=== PATIENT | female | born 1950 | race Hispanic/Latino ===

== ENCOUNTER → 2018-01-23 11:51 | Outpatient (CLI) | payer SELFPAY ==
[2018-01-23 14:03] LABS: Alanine Aminotransferase 23 IU/L (9-52); Albumin 4.5 g/dL (3.5-5.0); Albumin Globulin Ratio 1.5 (1.0-2.8); Alkaline Phosphatase 105 U/L (38-126); Aspartate Aminotransferase 32 IU/L (14-36); BUN Creatinine Ratio 21.7 (6-22); Bilirubin Total 0.6 mg/dL (0.2-1.3); Blood Urea Nitrogen 13 mg/dL (7-17); Calcium 9.5 mg/dL (8.4-10.2); Carbon Dioxide 30 mmol/L (22-32); Chloride 103 mmol/L (98-107); Cholesterol 160 mg/dL (140-199); Estimated Glomerular Filt Rate > 60.0 mL/min (>60); Globulin 3.1 g/dL (1.7-4.1); Glucose 108 mg/dL (80-110); HDL Cholesterol 55 mg/dL (40-60); HEMOLYSIS < 15 (0-50); LDL Cholesterol Calculated 84 mg/dL (<100); Potassium 4.3 mmol/L (3.4-5.1); Sodium 144 mmol/L (137-145); Total Protein 7.6 g/dL (6.3-8.2); Triglycerides 103 mg/dL (35-150)
[2018-01-23 14:13] LABS: Free T4, Direct Thyroxine 1.34 ng/dL (0.78-2.19)
[2018-01-23 19:33] LABS: Thyroid Stimulating Hormone 2.55 uIU/mL (0.47-4.68)
== END ==
PROVIDERS: PCP Internal Medicine; Visit Provider Internal Medicine
DX: E03.9 Hypothyroidism, unspecified (principal); E78.2 Mixed hyperlipidemia
CPT/HCPCS: 36415; 80053; 80061; 84439; 84443

== ENCOUNTER 2018-11-01 08:01 | Day surgery (SDC) | payer MEDICARE, OTHER, SELFPAY ==
--- NOTE | 2018-10-30 19:19 | PM.PREOP ---
Pre-operative Note Interval Note History & Physical reviewed/Exam performed by Physician: Yes Changes to H&P: No
--- NOTE | 2018-10-30 19:19 | PM.OP.1 ---
Operative Date/Time/Diagnoses Date of procedure: 11/01/18 Time of procedure: 08:45 Procedure & Clinicians Procedure: Preoperative diagnoses: 1. Right nuclear sclerotic and cortical cataract. 2. Asthma. Postoperative diagnoses: 1. Right phacoemulsication with placement of a posterior chamber intraocular lens implant. Surgeon: Parisa Dickey MD Complications: none Specimen: None Implant: [id number] Blood loss: None Anesthesia: Retrobulbar with monitored standby. Description of procedure: Dictated by: Parisa Dickey MD Copy to: [facility] Post operative diagnoses: 1. Right cataract removed with placement of a posterior chamber intraocular lens. Procedure: Phacoemulsification with posterior chamber intraocular lens implant Surgeon: Parisa Dickey MD Blood loss: None Anesthesia: Retrobulbar with monitored standby Description of procedure: Patient has presented with decreased vision due to cataract which is affecting activities of daily living. The patient wants surgery to improve vision. The patient was taken to the operating room and given IV sedation. A retrobulbar block consisting of 6 cc of 2% xylocaine without epinephrine mixed half and half with 0.5% Marcaine with 1 cc of hyaluronidase added is placed between the medial and lateral 1/3 of the inferior orbital rim. Lid akinesia is obtain with 1% xylocaine with epinephrine infiltrated along the lid margin. The eye is manually massaged for 30 sec, prepped using Betadine solution, and draped in the usual sterile fashion. Temporal approach was made, a 1 mm side-port incision was performed 90 degrees from the planned corneal wound. Phenylephrine 1.5% mixed with 1% xylocaine 0.2 cc was placed into the anterior chamber. Viscoat followed by [place] was then placed. A 2.6 mm clear incision with a 2.6 mm blade was placed. A 360 degree capsulorrhexis style capsulotomy was then performed with a cystitome needle on a Healon. Hydrodelineation and hydrodissection were performed. The phacoemulsification unit is introduced, and sculpting used to groove the central lens. It is then removed in chopping mode. Epi nucleus is removed with epinuclear mode and irrigation aspiration was used to remove the peripheral cortex. The posterior capsule is polished. The intraocular lens is selected, inspected, power confirmed, and placed in the posterior chamber. The pupil was constricted with Miostat. The wound was stromally hydrated and tested for leaks, there was none and was left sutureless. Vigamox 0.1 cc was placed into the anterior chamber. Kenalog 0.2 cc was placed in the superior subconjunctival space. A drop of antibiotic and was placed and the eye was patched and shielded. The patient was stable and returned to the recovery room in excellent condition. Dictated by: Parisa Dickey MD Copy to: [facility]
[2018-11-01] MEDS: PROPARACAINE 0.5% OPHTH SOL 2 DROPS EYE-OP (08:19)
[2018-11-01 08:22] VITALS: BMI 33.5
[2018-11-01] MEDS: CATARACT EYE COMPOUND (10 DROPS/SYRINGE) 3 DROPS EYE-OP (08:26)
[2018-11-01 08:27] VITALS: BP 151/73; PULSE 62; RESP 16; TEMP 36.6; O2SAT 96
[2018-11-01] MEDS: LIDOCAINE 2% 4 ML, BUPIVACAINE 0.5% (PF) 4 ML, HYALURONIDASE 150 UNIT INJ (09:17)
[2018-11-01] MEDS: LIDOCAINE 1% W/EPI INJ 20 ML INJ (09:18)
[2018-11-01] MEDS: PHENYLEPHRINE/LIDOCAINE VIAL (OR) 0.2 ML EYE-OP (09:19)
[2018-11-01] MEDS: MOXIFLOXACIN OPHTH DROPS 3 ML BOTTLE 2 DROPS INJ (09:20)
[2018-11-01] MEDS: CHONDROIDTIN/SOD HYALURONATE 1.05 ML SYRINGE INTRAOCULA (09:21)
[2018-11-01] MEDS: BALANCED SALT IRRIG SOLN NO.2 500 ML, EPINEPHrine 1 MG IRR (09:21)
[2018-11-01] MEDS: CARBACHOL 1.5 ML VIAL INJ (09:21)
[2018-11-01] MEDS: HYALURONATE SODIUM 10 MG/ML SYRINGE INJ (09:21)
[2018-11-01] MEDS: TRIAMCINOLONE 50 MG/5 ML VIAL INJ (09:21)
[2018-11-01] MEDS: OFLOXACIN 0.3% OPHTH 5 ML 2 DROPS EYE-RIGHT (09:22)
[2018-11-01] MEDS: NEOMYCIN/POLY/DEX OPHTH OINT 1 APPLIC EYE-RIGHT (09:23)
[2018-11-01] MEDS: BALANCED SALT IRRIG SOLN NO.2 15 ML IRR (09:24)
[2018-11-01 09:42] VITALS: BP 144/72; PULSE 67; RESP 16; TEMP 36.3; O2SAT 97
--- NOTE | 2018-11-01 10:09 | SUR.PHASEII ---
Late entry: d/c instructions discussed, indoing so I was made aware pt never picked eye drops up from Pharmacy. Dr. Dickey made aware. Pt's daughter called, informed she needed to pick meds up at our pharmacy and she voiced an understanding. Pt also voiced an understanding and left when ready and left in stable condition.
== END 2018-11-01 10:00 | disposition home or self-care (01) ==
LOC: OR 08:02
PROVIDERS: Family Provider Internal Medicine; PCP Internal Medicine; Visit Provider Ophthalmology
PROC: (CPT 66984; principal; 2018-11-01 08:45)
DX: H25.811 Combined forms of age-related cataract, right eye (principal); J45.909 Unspecified asthma, uncomplicated
CPT/HCPCS: 66984; J0171; J2250; J3010; J3301; J3470

== ENCOUNTER 2018-11-15 08:27 | Day surgery (SDC) | payer MEDICARE, OTHER, SELFPAY ==
--- NOTE | 2018-11-14 18:32 | PM.PREOP ---
Pre-operative Note Interval Note History & Physical reviewed/Exam performed by Physician: Yes Changes to H&P: No
--- NOTE | 2018-11-15 08:19 | P.OP_ITS ---
Operative Date/Time/Diagnoses Date of procedure: 11/15/18 Time of procedure: 09:45 Procedure & Clinicians Procedure: Preoperative diagnoses: 1. Nuclear sclerotic cataract 2. Astigmatism which is to be corrected with a toric intraocular lens implant. Postoperative diagnoses: 1. Cataract removal with phacoemulsification with toric posterior chamber intraocular lens implant placed. Procedure: Phacoemulsification with posterior chamber toric intraocular lens i mplant. Surgeon: Parisa Dickey MD Complications: None Specimen: None Implant: [id number]+21.5Axis 118 Blood loss: None Anesthesia: Retrobulbar with monitored standby Description of procedure: Patient presents with a complaint of decreased vision due to cataract which is affecting activities of daily living. The patient wants surgery to improve vision and astigmatism. The patient was taken to the operating room and proparacaine drops placed. Indelible ink trejo were placed at the 90 and 180 degree meridian. The patient was placed on the operating room table and given IV sedation. A retrobulbar block insert consisting of 6 cc of 2% xylocaine without epinephrine mixed half and half with 0.5% Marcaine with 1 cc of hyaluronidase added is placed between the medial and lateral 1/3 of the inferior orbital rim. The eye is manually massaged for 30 sec, prepped using Betadine solution, and draped in the usual sterile fashion. Temporal approach was made, a 1 mm side-port incision was made 90? from the proposed corneal wound. Phenylephrine 1.5% mixed with 1% xylocaine 0.2 cc was placed into the anterior chamber. Viscoat followed by Healon was then placed. A 2.6 mm clear incision with a 2.6 mm blade was placed at the 170 degree meridian. A 360 degree capsulorrhexis style capsulotomy was then performed with a cystitome needle on a Healon. Hydrodelineation and hydrodissection were performed. The phacoemulsification unit is introduced, and sculpting used to groove the central lens. It is then removed in chopping mode. Epi nucleus is removed with epinuclear mode and irrigation aspiration was used to remove the peripheral cortex. The posterior capsule is polished. The intraocular lens is selected, inspected, power confirmed, and placed in the posterior chamber at the desired meridian of 118 degrees. The pupil was not constricted. The wound was stromally hydrated and tested for leaks, there was none and it was left sutureless. Vigamox 0.1 cc was placed into the anterior chamber. Kenalog 0.2 cc was placed in the superior subconjunctival space. A drop of antibiotic and was placed and the eye was patched and shielded. The patient was stable and returned to the recovery room in excellent condition. Dictated by: Parisa Dickey MD Copy to: [facility]
[2018-11-15 09:03] VITALS: BP 125/74; PULSE 56; RESP 16; TEMP 36.6; O2SAT 97; BMI 33.1
[2018-11-15] MEDS: PROPARACAINE 0.5% OPHTH SOL 2 DROPS EYE-OP ×2 (09:06→10:23)
[2018-11-15] MEDS: CATARACT EYE COMPOUND (10 DROPS/SYRINGE) 3 DROPS EYE-OP (09:11)
[2018-11-15] MEDS: BALANCED SALT IRRIG SOLN NO.2 15 ML IRR (10:20)
[2018-11-15] MEDS: HYALURONATE SODIUM 10 MG/ML SYRINGE INJ (10:20)
[2018-11-15] MEDS: MOXIFLOXACIN OPHTH DROPS 3 ML BOTTLE 2 DROPS INJ (10:20)
[2018-11-15] MEDS: CHONDROIDTIN/SOD HYALURONATE 1.05 ML SYRINGE INTRAOCULA (10:20)
[2018-11-15] MEDS: TRIAMCINOLONE 50 MG/5 ML VIAL INJ (10:21)
[2018-11-15] MEDS: LIDOCAINE 2% 4 ML, BUPIVACAINE 0.5% (PF) 4 ML, HYALURONIDASE 150 UNIT INJ (10:21)
[2018-11-15] MEDS: PHENYLEPHRINE/LIDOCAINE VIAL (OR) 0.2 ML EYE-OP (10:22)
[2018-11-15] MEDS: BALANCED SALT IRRIG SOLN NO.2 500 ML, EPINEPHrine 1 MG IRR (10:23)
[2018-11-15 10:47] VITALS: BP 135/79; PULSE 60; RESP 15; TEMP 36.4; O2SAT 97
--- NOTE | 2018-11-15 11:06 | SUR.PHASEII ---
Resp unlabored, skin warm and dry. Tolerated PO well, all questions answered. Ride called. Eye shield CDI. Stable for discharge.
== END 2018-11-15 11:06 | disposition home or self-care (01) ==
PROVIDERS: PCP Internal Medicine; Visit Provider Ophthalmology
PROC: (CPT 66984; principal; 2018-11-15 09:45)
DX: H25.12 Age-related nuclear cataract, left eye (principal); H52.202 Unspecified astigmatism, left eye; J45.909 Unspecified asthma, uncomplicated
CPT/HCPCS: 66984; J0171; J2250; J3010; J3301; J3470; V2787

== ENCOUNTER 2019-06-21 10:38 | Emergency (ER) | payer MEDICARE, OTHER, SELFPAY ==
[2019-06-21 10:42] VITALS: BP 200/86; PULSE 94; RESP 20; TEMP 38.8; O2SAT 93
--- NOTE | 2019-06-21 10:46 | DI.RAD.S_ITS ---
PROCEDURE: XR CHEST 2V INDICATIONS: flu like symptoms, productive cough. DROPLET PRECAUTIONS TECHNIQUE: 2 views of the chest were acquired. COMPARISON: [facility], , CHEST 1 VIEW, 09/29/2013, 1:27. FINDINGS: Surgical changes and devices: Bilateral breast implants are seen and are grossly intact. Lungs and pleura: Increased bronchovascular markings in bilateral hilar region are seen with mild bronchial wall thickening. No focal infiltrate.. No pleural effusions or pneumothorax. Mediastinum: Mediastinal contours are normal. Heart size is normal. Bones and chest wall: No suspicious bony abnormalities. Soft tissues appear unremarkable. IMPRESSION: Suggestion of reactive airway disease such as bronchitis or viral pneumonia. No focal infiltrate. Dictated by: Gen Cope M.D. on 06/21/2019 at 11:17 Approved by: Gen Cope M.D. on 06/21/2019 at 11:18
[2019-06-21 10:51] VITALS: TEMP 38.8
[2019-06-21] MEDS: ACETAMINOPHEN 325 MG TABLET 975 MG PO (10:51)
[2019-06-21 11:17] LABS: Influenza A - CEPHEID Flu A POSITIVE (NEGATIVE); Influenza B - CEPHEID Flu B NEGATIVE (NEGATIVE)
--- NOTE | 2019-06-21 11:46 | PC.NURSE ---
pt reports she feels like she has sputum in throat and can not cough it up. pt having symptoms for the past 2 days
[2019-06-21 11:49] VITALS: BP 172/79; PULSE 88; RESP 17; TEMP 38.7; O2SAT 96
[2019-06-21 11:53] VITALS: PULSE 86; RESP 18; O2SAT 94
[2019-06-21] MEDS: ALBUTEROL/IPRATROPIUM 3 ML AMPUL INH (11:53)
[2019-06-21 12:46] VITALS: BP 170/88; PULSE 80; RESP 18; TEMP 38; O2SAT 94
--- NOTE | 2019-06-21 13:21 | ED.URI ---
HPI - URI/Sore Throat <PETRA Stubbs - Last Filed: 06/21/19 13:26> General Chief Complaint: Upper Respiratory Symptoms Stated Complaint: Throat and Chest Congestion Time Seen by Provider: 06/21/19 11:37 Source: patient Mode of arrival: Ambulatory Limitations: no limitations History of Present Illness HPI Narrative: The patient is a 68-year-old female nonsmoker with history of COPD who presents with a chief complaint of throat and chest congestion. Drip. She has had fevers up to 101.8. She states she has been wheezing, using her QVAR and her albuterol at home. She denies any abdominal pain nausea vomiting or diarrhea. She denies any ear pain or sore throat. Related Data Home Medications Medication Instructions Recorded Confirmed furosemide 20 mg PO QAM PRN 11/01/18 11/15/18 albuterol sulfate [Ventolin HFA] 1 - 2 puff INHALATION PRN PRN 06/21/19 06/21/19 beclomethasone dipropionate [Qvar 1 - 2 inh INHALATION BID 06/21/19 06/21/19 RediHaler] levothyroxine 125 mcg PO DAILY 06/21/19 06/21/19 metformin 500 mg PO QPM 06/21/19 06/21/19 Previous Rx's Medication Instructions Recorded atorvastatin 40 mg tablet 40 mg PO DAILY #90 tab 01/24/18 ibuprofen 800 mg tablet 800 mg PO TID PRN #150 tab 05/01/18 oseltamivir [Tamiflu] 75 mg PO BID 5 Days #10 cap 06/21/19 prednisone 40 mg PO DAILY 5 Days #10 tab 06/21/19 Allergies Allergy/AdvReac Type Severity Reaction Status Date / Time aspirin [ASPIRIN] AdvReac Mild Stomach Verified 06/21/19 10:45 irritation codeine [CODEINE] AdvReac Mild GI upset Verified 06/21/19 10:45 Review of Systems <PETRA Stubbs - Last Filed: 06/21/19 13:26> Review of Systems Narrative: GENERAL: See HPI HEENT: See HPI RESPIRATORY: See HPI CARDIOVASCULAR: Denies chest pain, palpitations, orthopnea, edema, GASTROINTESTINAL: Denies nausea, vomiting, abdominal pain, diarrhea, constipation, melena. : Denies dysuria, frequency, incontinence, hematuria, urinary retention. MUSCULOSKELETAL: denies weakness, joint pain, or bony pain SKIN: Denies rash, skin lesions, or other NEUROLOGIC: Denies weakness, headache, numbness, change in speech, confusion, seizures, incoordination. PSYCHIATRIC: No concerning psychosocial issues. 12 point review of systems is negative except for those stated above Patient History <PETRA Stubbs - Last Filed: 06/21/19 13:26> Medical History Acquired hypothyroidism (Chronic) Hyperthyroidism (Resolved) Mixed hyperlipidemia (Chronic) Surgical History Status post cholecystectomy Status post hysterectomy (~1988) Family History Mother Brain tumor Social History household members: spouse Smoking Status: Never smoker Smoking Status: Never smoker Exam <PETRA Stubbs - Last Filed: 06/21/19 13:26> Narrative Exam Narrative: GENERAL: This is a well-nourished, well-developed patient, no acute distress HEAD: Atraumatic. Normocephalic. No temporal or scalp tenderness. EYES: Pupils equal round and reactive. Extraocular motions intact. No scleral icterus. No injection or drainage. ENT: Nose without bleeding, purulent drainage or septal hematoma. Throat without erythema, tonsillar hypertrophy or exudate. Uvula midline. Airway patent. Bilateral TMs pearly alvarez. NECK: Trachea midline. No JVD or lymphadenopathy. Supple, nontender, no meningeal signs. CARDIOVASCULAR: Regular rate and rhythm without murmurs, gallops, or rubs. RESPIRATORY: Coarse bilaterally to auscultation. Breath sounds equal bilaterally. No wheezes, rales, or rhonchi. Speaking full sentences. No coughing. No increased respiratory effort. GASTROINTESTINAL: Abdomen soft, non-tender, nondistended. No hepato-splenomegaly, or palpable masses. No guarding. EXTREMITIES: No clubbing, cyanosis, or edema. No joint tenderness, effusion, or edema noted. BACK: Nontender without deformity or crepitance. No flank tenderness. NEURO: AOx3. SKIN: No rash or erythema on visible skin Initial Vital Signs Initial Vital Signs: Vital Signs Temperature 101.8 F H 06/21/19 10:42 Pulse Rate 94 H 06/21/19 10:42 Respiratory Rate 20 06/21/19 10:42 Blood Pressure 200/86 H 06/21/19 10:42 Pulse Oximetry 93 06/21/19 10:42 <Bryan Dozier MD - Last Filed: 06/22/19 07:53> Initial Vital Signs Initial Vital Signs: Vital Signs Temperature 101.8 F H 06/21/19 10:42 Pulse Rate 94 H 06/21/19 10:42 Respiratory Rate 20 06/21/19 10:42 Blood Pressure 200/86 H 06/21/19 10:42 Pulse Oximetry 93 06/21/19 10:42 Scores <PETRA Stubbs - Last Filed: 06/21/19 13:26> GCS [place] coma scale eye opening: Spontaneous Ravi coma scale verbal response: Orientated [place] coma scale motor response: Obey commands [place] coma scale total score: 15 Course <PETRA Stubbs - Last Filed: 06/21/19 13:26> Orders Ordered: Discontinued Medications Acetaminophen (Tylenol) 975 mg PO NOW ONE Stop: 06/21/19 10:48 Last Admin: 06/21/19 10:51 Dose: 975 mg Documented by: LEROY Albuterol/Ipratropium (Duoneb) 3 ml INH NOW ONE Stop: 06/21/19 11:46 Last Admin: 06/21/19 11:53 Dose: 3 ml Documented by: JASE Vital Signs Vital signs: Vital Signs - 8 hr 06/21/19 10:42 06/21/19 10:51 06/21/19 11:49 Temperature 101.8 F H 101.8 F H 101.6 F H Pulse Rate 94 H 88 Respiratory Rate 20 17 Blood Pressure 200/86 H Blood Pressure [Right Arm] 172/79 H Pulse Oximetry 93 96 06/21/19 11:53 06/21/19 12:46 Temperature 100.4 F H Pulse Rate 86 80 Respiratory Rate 18 18 Blood Pressure 170/88 H Blood Pressure [Right Arm] Pulse Oximetry 94 94 <Bryan Dozier MD - Last Filed: 06/22/19 07:53> Orders Ordered: Discontinued Medications Acetaminophen (Tylenol) 975 mg PO NOW ONE Stop: 06/21/19 10:48 Last Admin: 06/21/19 10:51 Dose: 975 mg Documented by: LEROY Albuterol/Ipratropium (Duoneb) 3 ml INH NOW ONE Stop: 06/21/19 11:46 Last Admin: 06/21/19 11:53 Dose: 3 ml Documented by: JASE Vital Signs Vital signs: Vital Signs - 8 hr 06/21/19 10:42 06/21/19 10:51 06/21/19 11:49 Temperature 101.8 F H 101.8 F H 101.6 F H Pulse Rate 94 H 88 Respiratory Rate 20 17 Blood Pressure 200/86 H Blood Pressure [Right Arm] 172/79 H Pulse Oximetry 93 96 06/21/19 11:53 06/21/19 12:46 Temperature 100.4 F H Pulse Rate 86 80 Respiratory Rate 18 18 Blood Pressure 170/88 H Blood Pressure [Right Arm] Pulse Oximetry 94 94 MDM - URI/Sore Throat <SANTIAGO Stubbs-OLINDA - Last Filed: 06/21/19 13:26> Lab Data Labs: Lab Results 06/21/19 06/21/19 Range/Units 10:48 10:48 Chlamy pneumoniae PCR Not detected (Not Detect) Adenovirus (PCR) Not detected (Not Detect) B.parapertussis DNA PCR Not detected (Not Detect) Coronavirus OC43 (PCR) Not detected (Not Detect) Coronavirus HKU1 (PCR) Not detected (Not Detect) Coronavirus 229E (PCR) Not detected (Not Detect) Coronavirus NL63 (PCR) Not detected (Not Detect) Human Metapneumovir PCR Not detected (Not Detect) Influenza A (RT-PCR) Flu a positive H (NEGATIVE) Influenza Type A (PCR) Detected H (Not Detect) Influenza B (RT-PCR) Flu b negative (NEGATIVE) Influenza Type B (PCR) Not detected (Not Detect) M. pneumoniae (PCR) Not detected (Not Detect) Parainfluenza 1 (PCR) Not detected (Not Detect) Parainfluenza 2 (PCR) Not detected (Not Detect) Parainfluenza 3 (PCR) Not detected (Not Detect) Parainfluenza 4 (PCR) Not detected (Not Detect) RSV (PCR) Not detected (Not Detect) Entero/Rhino (PCR) Not detected (Not Detect) Imaging Data Chest x-ray: Radiologist's Impression: [address] [place] [id number] XRay Report Signed Patient: Laly Valenzuela IMR#: [id number] : 2Acct:[id number] Age/Sex: 68 / FDate of Service: 06/21/19 Loc: ED Accession Number: [id number] Procedure: XR chest 2V Ordering Provider: Bryan Dozier MD PROCEDURE: XR CHEST 2V INDICATIONS: flu like symptoms, productive cough. DROPLET PRECAUTIONS TECHNIQUE: 2 views of the chest were acquired. COMPARISON: [facility], CHEST 1 VIEW, 09/29/2013, 1:27. FINDINGS: Surgical changes and devices: Bilateral breast implants are seen and are grossly intact. Lungs and pleura: Increased bronchovascular markings in bilateral hilar region are seen with mild bronchial wall thickening. No focal infiltrate.. No pleural effusions or pneumothorax. Mediastinum: Mediastinal contours are normal. Heart size is normal. Bones and chest wall: No suspicious bony abnormalities. Soft tissues appear unremarkable. IMPRESSION: Suggestion of reactive airway disease such as bronchitis or viral pneumonia. No focal infiltrate. Dictated by: Gen Cope M.D. on 06/21/2019 at 11:17 Approved by: Gen Cope M.D. on 06/21/2019 at 11:18 MDM Narrative Medical decision making narrative: The patient is a 68-year-old female with history of COPD who presents with increased wheezing, muscle aches and chills. She test positive for influenza A. She was given Tylenol in the emergency department states she felt much better. She was given a DuoNeb as well. She is using a spacer at home. She is oxygenating well in the emergency department, speaking full sentences and not hypoxic. Given her wheezing, I did give her a burst of steroids. Given that she has had symptoms for less than 48 hours, I did give her prescription for Tamiflu. I discussed at length pushing fluids and rest, [id number] medications as needed and able. I discussed at length the importance of following up with primary care provider coming back to the emergency department for any acute concerns. Patient has no questions or concerns upon discharge and states understanding of return precautions as well as follow-up care. <Bryan Dozier MD - Last Filed: 06/22/19 07:53> Lab Data Labs: Lab Results 06/21/19 06/21/19 Range/Units 10:48 10:48 Chlamy pneumoniae PCR Not detected (Not Detect) Adenovirus (PCR) Not detected (Not Detect) B.parapertussis DNA PCR Not detected (Not Detect) Coronavirus OC43 (PCR) Not detected (Not Detect) Coronavirus HKU1 (PCR) Not detected (Not Detect) Coronavirus 229E (PCR) Not detected (Not Detect) Coronavirus NL63 (PCR) Not detected (Not Detect) Human Metapneumovir PCR Not detected (Not Detect) Influenza A (RT-PCR) Flu a positive H (NEGATIVE) Influenza Type A (PCR) Detected H (Not Detect) Influenza B (RT-PCR) Flu b negative (NEGATIVE) Influenza Type B (PCR) Not detected (Not Detect) M. pneumoniae (PCR) Not detected (Not Detect) Parainfluenza 1 (PCR) Not detected (Not Detect) Parainfluenza 2 (PCR) Not detected (Not Detect) Parainfluenza 3 (PCR) Not detected (Not Detect) Parainfluenza 4 (PCR) Not detected (Not Detect) RSV (PCR) Not detected (Not Detect) Entero/Rhino (PCR) Not detected (Not Detect) Discharge Plan Departure Patient Disposition: Home Clinical Impression: Influenza A COPD (chronic obstructive pulmonary disease) Qualifiers: COPD type: unspecified COPD Qualified Code(s): J44.9 - Chronic obstructive pulmonary disease, unspecified Discharge Date/Time: 06/21/19 12:47 Instructions: DI for Chronic Obstructive Pulmonary Disease, DI for Influenza -- Adult, COPD: When to Call for Help Activity Restrictions/Additional Instructions: Thank you for trusting us with your care today. Today you tested positive for influenza A. Your chest x-ray shows no indication for bacterial pneumonia. Given your COPD and wheezing, placed you in a steroid burst for 5 days. Since you came in shortly after influenza symptoms started, I placed you on Tamiflu. [facility] 2 [facility] Please rest and push fluids Please come back to the emergency department for any acute concerns such as significant shortness of breath, concern of heart attack stroke etcetera Prescriptions: New oseltamivir [Tamiflu] 75 mg capsule 75 mg PO BID 5 Days Qty: 10 RF: 0 prednisone 20 mg tablet 40 mg PO DAILY 5 Days Qty: 10 RF: 0 No Action ibuprofen 800 mg tablet 800 mg PO TID PRN (Reason: pain) Qty: 150 RF: 3 atorvastatin 40 mg tablet 40 mg PO DAILY Qty: 90 RF: 3 metformin 500 mg tablet 500 mg PO QPM RF: 0 levothyroxine 125 mcg tablet 125 mcg PO DAILY RF: 0 albuterol sulfate [Ventolin HFA] 90 mcg/actuation HFA aerosol inhaler 1 - 2 puff INHALATION PRN PRN (Reason: Shortness Of Breath) RF: 0 Qvar RediHaler 80 mcg/actuation HFA aerosol breath activated 1 - 2 inh INHALATION BID RF: 0 furosemide 20 MG tablet 20 mg PO QAM PRN (Reason: bloating) RF: 0 Referrals: Bryan Bridges MD [Primary Care Provider] -
[2019-06-21 14:39] LABS: Adenovirus Not Detected (Not Detect); Bordetella pertussis Not Detected (Not Detect); Chlamydophila pneumoniae Not Detected (Not Detect); Coronavirus 229E Not Detected (Not Detect); Coronavirus HKU1 Not Detected (Not Detect); Coronavirus NL 63 Not Detected (Not Detect); Coronavirus OC43 Not Detected (Not Detect); Human Metapneumovirus Not Detected (Not Detect); Human Rhinovirus/Enterovirus Not Detected (Not Detect); Influenza A Detected (Not Detect); Influenza B Not Detected (Not Detect); Mycoplasma pneumoniae Not Detected (Not Detect); Parainfluenza Virus 1 Not Detected (Not Detect); Parainfluenza Virus 2 Not Detected (Not Detect); Parainfluenza Virus 3 Not Detected (Not Detect); Parainfluenza Virus 4 Not Detected (Not Detect); Respiratory Syncytial Virus Not Detected (Not Detect)
== END 2019-06-21 12:47 | disposition home or self-care (01) ==
PROVIDERS: Emergency Medicine; Emergency Provider Nurse Practitioner Family; PCP Internal Medicine
DX: J10.1 Influenza due to other identified influenza virus with other respiratory manifestations (principal); J44.9 Chronic obstructive pulmonary disease, unspecified
CPT/HCPCS: 71046; 87502; 87633; 94640; 99283; 99284

== ENCOUNTER 2021-05-30 01:39 | Emergency (ER) | payer MEDICARE, OTHER, SELFPAY ==
[2021-05-30 01:51] VITALS: BP 209/100; PULSE 68; RESP 20; TEMP 37.1; O2SAT 99; BMI 33.6
--- NOTE | 2021-05-30 02:00 | DI.RAD.S_ITS ---
PROCEDURE: XR CHEST 1V INDICATIONS: short of breath with covid TECHNIQUE: One view of the chest was acquired. COMPARISON: [facility], CR, XR CHEST 2V, 06/21/2019, 1:04. FINDINGS: Surgical changes and devices: Calcified bilateral breast implants are again noted. Lungs and pleura: Minimal interstitial prominence not significantly changed compared to prior study. No focal consolidation. No pneumothorax or pleural effusion. Mediastinum: Mediastinal contours appear normal. Heart size is normal. Bones and chest wall: No suspicious bony lesions. Overlying soft tissues appear unremarkable. IMPRESSION: Redemonstration of minimal interstitial prominence without focal consolidations. Findings are nonspecific and may represent chronic background interstitial lung disease versus infectious/inflammatory process with viral etiology most likely. Dictated by: Denny Quevedo M.D. on 05/30/2021 at 7:55 Approved by: Denny Quevedo M.D. on 05/30/2021 at 7:57
[2021-05-30 02:06] VITALS: PULSE 60; O2SAT 100
[2021-05-30 02:26] LABS: Add Manual Diff / Slide Review NO; Basophils Absolute Auto 0 /uL (0-100); Basophils Percent Auto 0.5 % (0-2); Eosinophils Absolute Auto 0 /uL (0-450); Eosinophils Percent Auto 0.5 % (2-4); Hematocrit 35.5 % (36-46); Hemoglobin 11.8 g/dL (12.0-16.0); Lymphocytes Absolute Auto 2100 /uL (1100-4500); Lymphocytes Percent Auto 38.3 % (25-40); Mean Corpuscular HGB Conc 33.4 % (30-36); Mean Corpuscular Hemoglobin 29.5 PG (26-34); Mean Corpuscular Volume 88.3 fL (80-100); Monocytes Absolute Auto 900 /uL (0-900); Neutrophils Absolute Auto 2500 /uL (1500-7000); Neutrophils Percent Auto 44.7 % (50-75); Platelet Count 190 X10^3/uL (150-400); Red Blood Cell Count 4.02 X10^6/uL (4.0-5.2); Red Cell Distribution Width 15.2 % (11.6-14.8); White Blood Cell Count 5.6 X10^3/uL (4.5-11.0)
[2021-05-30 02:30] VITALS: PULSE 58; O2SAT 98
[2021-05-30 02:31] VITALS: BP 172/76; PULSE 58; O2SAT 95
[2021-05-30 02:34] LABS: COVID19 -Nasal RAPID POSITIVE (Negative)
[2021-05-30 02:36] LABS: Alanine Aminotransferase 13 IU/L (<35); Albumin 4.3 g/dL (3.5-5.0); Albumin Globulin Ratio 1.3 (1.0-2.8); Alkaline Phosphatase 80 U/L (38-126); Aspartate Aminotransferase 47 IU/L (14-36); BUN Creatinine Ratio 23.1 (6-22); Bilirubin Total 0.4 mg/dL (0.2-1.3); Blood Urea Nitrogen 15 mg/dL (7-17); Calcium 9.3 mg/dL (8.4-10.2); Carbon Dioxide 32 mmol/L (22-32); Chloride 103 mmol/L (98-107); Creatine Kinase 252 U/L (30-135); Estimated Glomerular Filt Rate > 60.0 mL/min (>60); Globulin 3.3 g/dL (1.7-4.1); Glucose 120 mg/dL (80-110); HEMOLYSIS < 15 (0-50); Lactate (Lactic Acid) 0.7 mmol/L (0.7-2.1); Potassium 3.9 mmol/L (3.4-5.1); Sodium 139 mmol/L (137-145); Total Protein 7.6 g/dL (6.3-8.2)
[2021-05-30 02:48] LABS: NT-proBNP (BNP-Adult 18+) 97 pg/mL (<125); Troponin I < 0.012 ng/mL (0.01-0.034)
[2021-05-30 02:51] LABS: CKMB % Relative Index 0.6 % (1.5-5.0); Creatine Kinase MB 1.43 ng/mL (<2.37)
[2021-05-30 03:00] VITALS: PULSE 57; O2SAT 97
[2021-05-30 03:01] VITALS: BP 179/76; PULSE 56; O2SAT 98
--- NOTE | 2021-05-30 03:04 | ED_ITS ---
HPI - SOB/Dyspnea General Chief Complaint: Upper Respiratory Symptoms Stated Complaint: SOB COVID + Time Seen by Provider: 05/30/21 01:52 Source: patient Mode of arrival: Ambulatory Limitations: no limitations History of Present Illness HPI Narrative: Patient is a 70-year-old female with chemical induced COPD, hyperlipidemia presenting today with sore throat and increasing shortness of breath over last 2 days. She has also had a nonproductive cough. Seen says this feels just like her previous influenza infection in June of 2019 for which she received Tamiflu. He said tonight she was having increasing shortness of breath and chest tightness while lying down. She has had some shortness of breath with exe rtion over the last couple days as well. She has some mild body aches. She did have a positive home COVID test. She is also not vaccinated for COVID Related Data Home Medications Medication Instructions Recorded Confirmed furosemide 20 mg tablet 20 mg PO QAM PRN 11/01/18 11/15/18 albuterol sulfate 90 mcg/actuation 1 - 2 puff INHALATION PRN PRN 06/21/19 06/21/19 aerosol inhaler (Ventolin HFA) beclomethasone dipropionate 80 1 - 2 inh INHALATION BID 06/21/19 06/21/19 mcg/actuation HFA breath activated aerosol (Qvar RediHaler) levothyroxine 125 mcg tablet 125 mcg PO DAILY 06/21/19 06/21/19 metformin 500 mg tablet 500 mg PO QPM 06/21/19 06/21/19 Previous Rx's Medication Instructions Recorded atorvastatin 40 mg tablet 40 mg PO DAILY #90 tab 01/24/18 ibuprofen 800 mg tablet 800 mg PO TID PRN #150 tab 05/01/18 Allergies Allergy/AdvReac Type Severity Reaction Status Date / Time aspirin [ASPIRIN] AdvReac Mild Stomach Verified 06/21/19 10:45 irritation codeine [CODEINE] AdvReac Mild GI upset Verified 06/21/19 10:45 Review of Systems Review of Systems Narrative: GENERAL: Denies chills, fatigue, malaise, fever, sweats, travel HEENT: Denies sinus pain, ear pain, sore throat, difficulty swallowing, neck pain RESPIRATORY: See HPI CARDIOVASCULAR: Denies chest pain, palpitations, orthopnea, edema GASTROINTESTINAL: Denies nausea, vomiting, abdominal pain, diarrhea, constipation, melena. : Denies dysuria, frequency, incontinence, hematuria, urinary retention, flank pain. MUSCULOSKELETAL: Denies weakness, joint pain, or bony pain SKIN: No rash, no erythema, no pruritus NEUROLOGIC: Denies weakness, dizziness, headache, numbness, change in speech, confusion PSYCHIATRIC: No concerning psychosocial issues. 12 point review of systems is negative except for those stated above and HPI Patient History Medical History (Updated 05/30/21 @ 03:14 by Maria Howe DO) Acquired hypothyroidism Hyperthyroidism Mixed hyperlipidemia Surgical History Status post cholecystectomy Status post hysterectomy (~1988) Family History Mother Brain tumor Social History household members: spouse Smoking Status: Never smoker Smoking Status: Never smoker alcohol intake frequency: 0-2 drinks per day Substance Use Type: does not use Exam Initial Vital Signs Initial Vital Signs: Vital Signs Temperature 98.8 F 05/30/21 01:51 Pulse Rate 68 05/30/21 01:51 Respiratory Rate 20 05/30/21 01:51 Blood Pressure 209/100 H 05/30/21 01:51 Pulse Oximetry 99 05/30/21 01:51 GENERAL: Alert well-appearing 70-year-old femaleand in no acute distress. HEENT: Head atraumatic,EOMI, pupils reactive, face symmetric, moist mucous membranes CARDIOVASCULAR: Regular rate and rhythm without murmurs, rubs or gallops. RESPIRATORY: Breath sounds equal bilaterally, no wheezes rales or rhonchi.no respiratory distress speaking in full sentences no wheezing ABDOMEN: Soft, nontender. Normoactive bowel sounds all 4 quadrants. No guarding or rebound. EXTREMITIES: Normal range of motion, no clubbing or edema. Neurovascularly intact NEUROLOGICAL: Alert and oriented x4.Normal gait and speech. SKIN: Warm, dry, no laceration, no petechiae, no rashes or lesions. Course Orders Ordered: ED Orders 05/30/21 02:00 XR chest 1V Stat 05/30/21 02:10 COVID19 -Nasal swab/Pre-Proc Stat Complete Blood Count AUTO DIFF Stat Comprehensive Metabolic Panel Stat Lactate (Lactic Acid) Stat NT-proBNP (BNP-Adult 18+) Stat Troponin & CK Cardiac Panel Stat 05/30/21 02:12 EKG-12 Lead Stat Vital Signs Vital signs: Vital Signs - 8 hr 05/30/21 01:51 05/30/21 02:06 05/30/21 02:30 Temperature 98.8 F Pulse Rate 68 60 58 L Respiratory Rate 20 Blood Pressure 209/100 H Pulse Oximetry 99 100 98 05/30/21 02:31 05/30/21 03:00 05/30/21 03:01 Temperature Pulse Rate 58 L 57 L 56 L Respiratory Rate Blood Pressure 172/76 H 179/76 H Pulse Oximetry 95 97 98 MDM - SOB/Dyspnea Lab Data Result diagrams: 05/30/21 02:10 05/30/21 02:10 Labs: Lab Results 05/30/21 05/30/21 05/30/21 Range/Units 02:10 02:10 02:10 WBC 5.6 (4.5-11.0) X10^3/uL RBC 4.02 (4.0-5.2) X10^6/uL Hgb 11.8 L (12.0-16.0) g/dL Hct 35.5 L (36-46) % MCV 88.3 (80-100) fL MCH 29.5 (26-34) PG MCHC 33.4 (30-36) % RDW 15.2 H (11.6-14.8) % Plt Count 190 (150-400) X10^3/uL Neut % (Auto) 44.7 L (50-75) % Lymph % (Auto) 38.3 (25-40) % Greenlee % (Auto) 16.0 H (3-14) % Eos % (Auto) 0.5 L (2-4) % Baso % (Auto) 0.5 (0-2) % Neut # (Auto) 2500 (3176-1867) /uL Lymph # (Auto) 2100 (2504-7414) /uL Greenlee # (Auto) 900 (0-900) /uL Eos # (Auto) 0 (0-450) /uL Baso # (Auto) 0 (0-100) /uL Sodium (137-145) mmol/L Potassium (3.4-5.1) mmol/L Chloride (98-107) mmol/L Carbon Dioxide (22-32) mmol/L BUN (7-17) mg/dL Creatinine (0.52-1.04) mg/dL Estimated GFR (>60) mL/min BUN/Creatinine Ratio (6-22) Glucose (80-110) mg/dL Lactate 0.7 (0.7-2.1) mmol/L Calcium (8.4-10.2) mg/dL Total Bilirubin (0.2-1.3) mg/dL AST (14-36) IU/L ALT (<35) IU/L Alkaline Phosphatase (38-126) U/L Total Creatine Kinase 252 H (30-135) U/L CK-MB (CK-2) 1.43 (<2.37) ng/mL CK-MB (CK-2) Rel Index 0.6 L (1.5-5.0) % Troponin I < 0.012 (0.01-0.034) ng/mL NT-Pro-B Natriuret Pep 97 (<125) pg/mL Total Protein (6.3-8.2) g/dL Albumin (3.5-5.0) g/dL Globulin (1.7-4.1) g/dL Albumin/Globulin Ratio (1.0-2.8) SARS-CoV-2 (PCR) (Negative) 05/30/21 05/30/21 Range/Units 02:10 02:10 WBC (4.5-11.0) X10^3/uL RBC (4.0-5.2) X10^6/uL Hgb (12.0-16.0) g/dL Hct (36-46) % MCV (80-100) fL MCH (26-34) PG MCHC (30-36) % RDW (11.6-14.8) % Plt Count (150-400) X10^3/uL Neut % (Auto) (50-75) % Lymph % (Auto) (25-40) % Greenlee % (Auto) (3-14) % Eos % (Auto) (2-4) % Baso % (Auto) (0-2) % Neut # (Auto) (6279-6391) /uL Lymph # (Auto) (8854-0951) /uL Greenlee # (Auto) (0-900) /uL Eos # (Auto) (0-450) /uL Baso # (Auto) (0-100) /uL Sodium 139 (137-145) mmol/L Potassium 3.9 (3.4-5.1) mmol/L Chloride 103 (98-107) mmol/L Carbon Dioxide 32 (22-32) mmol/L BUN 15 (7-17) mg/dL Creatinine 0.65 (0.52-1.04) mg/dL Estimated GFR > 60.0 (>60) mL/min BUN/Creatinine Ratio 23.1 H (6-22) Glucose 120 H (80-110) mg/dL Lactate (0.7-2.1) mmol/L Calcium 9.3 (8.4-10.2) mg/dL Total Bilirubin 0.4 (0.2-1.3) mg/dL AST 47 H (14-36) IU/L ALT 13 (<35) IU/L Alkaline Phosphatase 80 (38-126) U/L Total Creatine Kinase (30-135) U/L CK-MB (CK-2) (<2.37) ng/mL CK-MB (CK-2) Rel Index (1.5-5.0) % Troponin I (0.01-0.034) ng/mL NT-Pro-B Natriuret Pep (<125) pg/mL Total Protein 7.6 (6.3-8.2) g/dL Albumin 4.3 (3.5-5.0) g/dL Globulin 3.3 (1.7-4.1) g/dL Albumin/Globulin Ratio 1.3 (1.0-2.8) SARS-CoV-2 (PCR) Positive H (Negative) Imaging Data Chest x-ray: Radiologist's Impression: No acute cardiopulmonary pathology ECG Data Interpretation: Normal sinus rhythm rate 61 OH interval 168 QRS 82 QTC 394 MDM Narrative Medical decision making narrative: Patient initially noted to be hypertensive blood pressure improved without any intervention no sign of end-organ damage. She continues to be positive for COVID but not needing admission criteria at this time. Referral for monoclonal antibody has been filled out and faxed. On sure if this is still being done or given however we do not have any other medication from this facility at this time. Discharge Plan Departure Patient Disposition: Home Clinical Impression: COVID-19 Instructions: DI for COVID-19 (Suspected or Confirmed ) Activity Restrictions/Additional Instructions: *You have been diagnosed with COVID-19 *What to do: At this time you have COVID 19. Monoclonal antibody referral was made for you however it is not guaranteed he will receive it. Please monitor your oxygen at home. *Continue to take medications as directed *Follow up with your primary care provider in 2-3 days or call [phone] *Return to ER if you should have oxygen less than 91%, increasing shortness of breath, chest pain or any new, worsening or concerning symptoms Prescriptions: No Action ibuprofen 800 mg tablet 800 mg PO TID PRN (Reason: pain) Qty: 150 3RF atorvastatin 40 mg tablet 40 mg PO DAILY Qty: 90 3RF metformin 500 mg tablet 500 mg PO QPM 0RF Label Comments: TAKE 1 (ONE) TABLET DAILY WITH DINNER Rx Instructions: with dinner levothyroxine 125 mcg tablet 125 mcg PO DAILY 0RF Label Comments: TAKE 1 TABLET DAILY, TAKE ON EMPTY STOMACH albuterol sulfate [Ventolin HFA] 90 mcg/actuation HFA aerosol inhaler 1 - 2 puff INHALATION PRN PRN (Reason: Shortness Of Breath) 0RF Label Comments: INHALE 1-2 PUFF EVERY 6 HOURS NEEDED FOR ASTHMA Qvar RediHaler 80 mcg/actuation HFA aerosol breath activated 1 - 2 inh INHALATION BID 0RF Label Comments: INHALE 1-2 PUFFS BY MOUTH TWO TIMES DAILY furosemide 20 MG tablet 20 mg PO QAM PRN (Reason: bloating) 0RF Referrals: Bryan Bridges MD [Primary Care Provider] -
== END 2021-05-30 03:28 | disposition home or self-care (01) ==
PROVIDERS: Emergency Provider Emergency Medicine; PCP Internal Medicine
DX: U07.1 COVID-19 (principal); R07.9 Chest pain, unspecified
CPT/HCPCS: 36415; 71045; 80053; 82550; 82553; 83605; 83880; 84484; 85025; 87635; 93005; 93010; 99284; C9803

== ENCOUNTER 2024-04-04 22:06 | Emergency (ER) | payer MEDICARE, OTHER, SELFPAY ==
[2024-04-04] VITALS (11 sets, daily range): BP systolic 147–246; BP diastolic 66–109; PULSE 58–94; RESP 16–18; TEMP 37.1; O2SAT 97–99; BMI 32.7
--- NOTE | 2024-04-04 22:22 | DI.RAD.S_ITS ---
PROCEDURE: XR CHEST 1V INDICATIONS: severe htn TECHNIQUE: One view of the chest was acquired. COMPARISON: [facility], CR, XR CHEST 1V, 05/30/2021, 2:17. FINDINGS: Surgical changes and devices: None. Lungs and pleura: Lungs are clear. No pleural effusions or pneumothorax. Mediastinum: Mediastinal contours appear normal. Heart size is enlarged. Bones and chest wall: No suspicious bony lesions. Overlying soft tissues appear unremarkable. IMPRESSION: No acute pulmonary process. Dictated by: Natacha Riley M.D. on 04/04/2024 at 22:53 Approved by: Natacha Riley M.D. on 04/04/2024 at 22:53
--- NOTE | 2024-04-04 22:23 | ED.GENADULT ---
HPI - General Adult General Chief complaint: Hypertension Stated complaint: states high BP Time Seen by Provider: 04/04/24 22:14 Source: patient Mode of arrival: Ambulatory History of Present Illness HPI narrative: 73-year-old female with history of hyperlipidemia, prediabetes presents by private vehicle from home for elevated blood pressure readings. Patient states that she went to go lay down and felt like she could feel her heartbeat in her ears. She measured her blood pressure at home and it was over 200 systolic and so she decided to present for evaluation. Patient states that otherwise she was felt in her usual state of health and has no complaints. Denies chest pain, shortness of breath, worst headache of life, numbness, weakness, any other complaints. Does not take any medications for blood pressure at home. Followed by primary care doctor at [facility] Related Data Home Medications Medication Instructions Recorded Confirmed furosemide 20 mg tablet 20 mg PO QAM PRN bloating 11/01/18 11/15/18 albuterol sulfate 90 mcg/actuation 1 - 2 puff inhalation PRN PRN 06/21/19 06/21/19 aerosol inhaler (Ventolin HFA) Shortness Of Breath beclomethasone dipropionate 80 1 - 2 inh inhalation BID 06/21/19 06/21/19 mcg/actuation HFA breath activated aerosol (Qvar RediHaler) levothyroxine 125 mcg tablet 125 mcg PO DAILY 06/21/19 06/21/19 metformin 500 mg tablet 500 mg PO QPM 06/21/19 06/21/19 Previous Rx's Medication Instructions Recorded atorvastatin 40 mg tablet 40 mg PO DAILY #90 tabs 01/24/18 ibuprofen 800 mg tablet 800 mg PO TID PRN pain #150 tabs 05/01/18 amlodipine 5 mg tablet 5 mg PO DAILY #30 tabs 04/05/24 amlodipine 5 mg tablet 5 mg PO DAILY #30 tabs 04/05/24 Allergies Allergy/AdvReac Type Severity Reaction Status Date / Time aspirin [ASPIRIN] AdvReac Mild Stomach Verified 06/21/19 10:45 irritation codeine [CODEINE] AdvReac Mild GI upset Verified 06/21/19 10:45 Patient History Medical History Hyperthyroidism Mixed hyperlipidemia Acquired hypothyroidism Surgical History Status post hysterectomy (~1988) Status post cholecystectomy Family History Mother Brain tumor Social History household members: spouse Smoking Status: Never smoker Smoking Status: Never smoker alcohol intake frequency: 0-2 drinks per day Exam Initial Vital Signs Initial Vital Signs: Vital Signs Pulse Rate 73 04/04/24 22:11 Pulse Oximetry 97 04/04/24 22:11 Const: Awake, alert, no acute distress, nontoxic appearing Cardiac: regular rate, regular rhythm RESP: unlabored, clear bilaterally, no wheezing GI: Soft, nontender, nondistended MSK: No edema, full range of motion, pulses equal Skin: Warm, Dry, intact, no rashes Neuro: AO x3, CN II-XII grossly intact, moves all extremities Course Orders Ordered: ED Orders 04/04/24 22:22 Chest [XR chest 1V] Stat UA Complete [Urinalysis and Microscopic] Stat EKG-12 Lead Stat 04/04/24 22:25 CBC Auto Diff [Complete Blood Count AUTO DIFF] Stat CMP [Comprehensive Metabolic Panel] Stat TSH [Thyroid Stimulating Hormone] Stat Discontinued Medications Hydralazine HCl (Hydralazine 20 Mg/Ml Vial) 20 mg IV NOW ONE Stop: 04/04/24 22:41 Last Admin: 04/04/24 22:50 Dose: 20 mg Documented By: LS Vital Signs Vital signs: Vital Signs - 8 hr 04/04/24 22:11 04/04/24 22:12 04/04/24 22:12 Temperature Pulse Rate 73 68 Respiratory Rate Blood Pressure 246/109 H Pulse Oximetry 97 98 Oxygen Delivery Method 04/04/24 22:14 04/04/24 22:20 04/04/24 22:20 Temperature 98.7 F Pulse Rate 64 66 Respiratory Rate 18 16 Blood Pressure 246/109 H 220/103 H Pulse Oximetry 98 99 Oxygen Delivery Method Room Air Room Air 04/04/24 22:30 04/04/24 22:30 04/04/24 22:48 Temperature Pulse Rate 59 L Respiratory Rate 18 Blood Pressure 199/83 H 203/86 H Pulse Oximetry 97 Oxygen Delivery Method Room Air 04/04/24 22:48 04/04/24 23:00 04/04/24 23:00 Temperature Pulse Rate 58 L 72 Respiratory Rate Blood Pressure 167/73 H Pulse Oximetry 98 97 Oxygen Delivery Method 04/04/24 23:15 04/04/24 23:15 04/04/24 23:31 Temperature Pulse Rate 76 94 H Respiratory Rate 16 18 Blood Pressure 156/74 H Pulse Oximetry 98 98 Oxygen Delivery Method Room Air Room Air 04/04/24 23:32 04/04/24 23:32 04/04/24 23:45 Temperature Pulse Rate 81 73 Respiratory Rate 18 18 16 Blood Pressure 153/66 H Pulse Oximetry 98 98 Oxygen Delivery Method Room Air Room Air 04/04/24 23:45 04/05/24 00:00 04/05/24 00:00 Temperature Pulse Rate 71 Respiratory Rate 16 Blood Pressure 147/72 H 148/70 H Pulse Oximetry 99 Oxygen Delivery Method Room Air Medical Decision Making Lab Data 04/04/24 22:25 04/04/24 22:25 Labs: Lab Results 04/04/24 04/04/24 Range/Units 22:25 23:30 WBC 9.2 (4.5-11.0) X10^3/uL RBC 4.46 (4.0-5.2) X10^6/uL Hgb 13.4 (12.0-16.0) g/dL Hct 39.8 (36-46) % MCV 89.3 (80-100) fL MCH 30.0 (26-34) PG MCHC 33.7 (30-36) % RDW 14.3 (11.6-14.8) % Plt Count 234 (150-400) X10^3/uL Neut % (Auto) 43.8 L (50-75) % Lymph % (Auto) 44.8 H (25-40) % Grant % (Auto) 6.7 (3-14) % Eos % (Auto) 3.8 (2-4) % Baso % (Auto) 0.9 (0-2) % Neut # (Auto) 4000 (6791-0187) /uL Lymph # (Auto) 4100 (3049-2950) /uL Grant # (Auto) 600 (0-900) /uL Eos # (Auto) 400 (0-450) /uL Baso # (Auto) 100 (0-100) /uL Sodium 136 L (137-145) mmol/L Potassium 3.9 (3.4-5.1) mmol/L Chloride 104 (98-107) mmol/L Carbon Dioxide 30 (22-32) mmol/L BUN 19 H (7-17) mg/dL Creatinine 0.77 (0.52-1.04) mg/dL Estimated GFR > 60 (>60) mL/min BUN/Creatinine Ratio 24.7 H (6-22) Glucose 116 H (80-110) mg/dL Calcium 9.4 (8.4-10.2) mg/dL Total Bilirubin 0.5 (0.2-1.3) mg/dL AST 46 H (14-36) IU/L ALT 16 (<35) IU/L Alkaline Phosphatase 99 (38-126) U/L Total Protein 8.1 (6.3-8.2) g/dL Albumin 4.2 (3.5-5.0) g/dL Globulin 3.9 (1.7-4.1) g/dL Albumin/Globulin Ratio 1.1 (1.0-2.8) TSH 13.0 H (0.47-4.68) uIU/mL Urine Color Yellow Urine Appearance Clear Urine pH 6.5 (4.5-8.0) Ur Specific Blairs 1.010 (1.000-1.035) Urine Protein Negative (Negative) Urine Glucose (UA) Negative (Negative) g/dL Urine Ketones Negative (NEGATIVE) Urine Occult Blood Negative (Negative) Urine Nitrate Negative (Negative) Urine Bilirubin Negative (NEGATIVE) Urine Urobilinogen 0.2 (0.2) E.U./dL Ur Leukocyte Esterase Negative (NEGATIVE) Urine RBC None seen (0-5/HPF) Urine WBC None seen (0-5/HPF) Ur Squamous Epith Cells 0-1 /hpf (0-5/HPF) Urine Bacteria None seen (None) Ur Culture Indicated? Cult not indicated Vol Urine Centrifuged 10ml (spun) ECG Data Attestation: I personally reviewed and interpreted this ECG as follows: Interpretation: Sinus bradycardia at 59 beats per minute. Normal CO, no ST T wave changes MDM Narrative Medical decision making narrative: Patient with otherwise asymptomatic hypertension. On presentation to the emergency department patient's BP 246/109 measured on the left arm, with similar measurement on right arm. No history of hypertension per patient, she states that normally when she goes to the doctor her blood pressure is between 110 and 120 systolic. She last saw her primary care doctor 1 month prior. Patient was blood pressure has remained decreased after hydralazine administration. Laboratory work is unremarkable. No signs of end-organ damage. Patient has remained asymptomatic in the exam room with no new complaints. Uncertain reason why patient's blood pressure would be so elevated today when it is normally well-controlled. Patient informed of lab and x-ray imaging results. Recommended starting amlodipine 5 mg daily and keeping a blood pressure diary. She should bring the diary to her primary care doctor to see if her medications need to be adjusted. This may possibly be related to diet or stress due to holiday season. ED return precautions discussed. Discharge Plan Departure Patient Disposition: Home Clinical Impression: Hypertension Instructions: DI for High Blood Pressure Activity Restrictions/Additional Instructions: Your blood pressure today was quite elevated, however your blood work was normal. At home I recommend getting a blood pressure cuff and keeping a journal of your blood pressures, 1-2 times per day. Bring this to your primary care doctor. If you have chest pain, shortness of breath, severe headache, or any other concerning symptoms please come back to the ED for evaluation. Otherwise Prescriptions: New amlodipine 5 mg tablet 5 mg PO DAILY Qty: 30 0RF amlodipine 5 mg tablet 5 mg PO DAILY Qty: 30 0RF No Action ibuprofen 800 mg tablet 800 mg PO TID PRN (Reason: pain) Qty: 150 3RF atorvastatin 40 mg tablet 40 mg PO DAILY Qty: 90 3RF metformin 500 mg tablet 500 mg PO QPM Patient Comments: TAKE 1 (ONE) TABLET DAILY WITH DINNER Rx Instructions: with dinner levothyroxine 125 mcg tablet 125 mcg PO DAILY Patient Comments: TAKE 1 TABLET DAILY, TAKE ON EMPTY STOMACH albuterol sulfate [Ventolin HFA] 90 mcg/actuation HFA aerosol inhaler 1 - 2 puff INHALATION PRN PRN (Reason: Shortness Of Breath) Patient Comments: INHALE 1-2 PUFF EVERY 6 HOURS NEEDED FOR ASTHMA Qvar RediHaler 80 mcg/actuation HFA aerosol breath activated 1 - 2 inh INHALATION BID Patient Comments: INHALE 1-2 PUFFS BY MOUTH TWO TIMES DAILY furosemide 20 MG tablet 20 mg PO QAM PRN (Reason: bloating) Referrals: Miscellaneous,Doctor, [Primary Care Provider] - Stand Alone Forms: Patient Portal/API/Survey
--- NOTE | 2024-04-04 22:29 | EKG_ITS ---
[address] [address] Test Date: 2024-04-04 Pat Name: Laly Valenzuela Department: [facility] Room: Gender: Female Psychiatric Nurse Practitioner: WHITNEY ALMA : 1950 Requested By: Order Number: [id number] Reading MD: Froylan Gilbert Measurements Intervals [place] Rate: 59 P: 61 IA: 186 QRS: 57 QRSD: 74 T: 177 QT: 440 QTc: 435 Interpretive Statements Sinus bradycardia Nonspecific T wave abnormality Electronically Signed On 04-05-2024 8:21:53 PST by Froylan Gilbert
[2024-04-04 22:35] LABS: Add Manual Diff / Slide Review NO; Basophils Absolute Auto 100 /uL (0-100); Basophils Percent Auto 0.9 % (0-2); Eosinophils Absolute Auto 400 /uL (0-450); Eosinophils Percent Auto 3.8 % (2-4); Hematocrit 39.8 % (36-46); Hemoglobin 13.4 g/dL (12.0-16.0); Lymphocytes Absolute Auto 4100 /uL (1100-4500); Lymphocytes Percent Auto 44.8 % (25-40); Mean Corpuscular HGB Conc 33.7 % (30-36); Mean Corpuscular Volume 89.3 fL (80-100); Monocytes Absolute Auto 600 /uL (0-900); Monocytes Percent Auto 6.7 % (3-14); Neutrophils Absolute Auto 4000 /uL (1500-7000); Neutrophils Percent Auto 43.8 % (50-75); Platelet Count 234 X10^3/uL (150-400); Red Blood Cell Count 4.46 X10^6/uL (4.0-5.2); Red Cell Distribution Width 14.3 % (11.6-14.8); White Blood Cell Count 9.2 X10^3/uL (4.5-11.0)
[2024-04-04 22:50] LABS: Alanine Aminotransferase 16 IU/L (<35); Albumin 4.2 g/dL (3.5-5.0); Albumin Globulin Ratio 1.1 (1.0-2.8); Alkaline Phosphatase 99 U/L (38-126); Aspartate Aminotransferase 46 IU/L (14-36); BUN Creatinine Ratio 24.7 (6-22); Bilirubin Total 0.5 mg/dL (0.2-1.3); Blood Urea Nitrogen 19 mg/dL (7-17); Calcium 9.4 mg/dL (8.4-10.2); Carbon Dioxide 30 mmol/L (22-32); Chloride 104 mmol/L (98-107); Estimated Glomerular Filt Rate > 60 mL/min (>60); Globulin 3.9 g/dL (1.7-4.1); Glucose 116 mg/dL (80-110); HEMOLYSIS 20 (0-50); Potassium 3.9 mmol/L (3.4-5.1); Sodium 136 mmol/L (137-145); Total Protein 8.1 g/dL (6.3-8.2)
[2024-04-04] MEDS: HYDRALAZINE 20 MG/ML VIAL IV (22:50)
--- NOTE | 2024-04-04 23:32 | PC.NURSE ---
Pt ambulatory to restroom without difficulty or assistance
[2024-04-05] VITALS: BP 148/70; PULSE 71; RESP 16; O2SAT 99
[2024-04-05 00:10] LABS: Appearance Urine UA CLEAR; Bilirubin Urine UA NEGATIVE (NEGATIVE); Color Urine UA YELLOW; Glucose Urine UA NEGATIVE (Negative); Ketones Urine UA NEGATIVE (NEGATIVE); Leukocyte Esterase Urine UA NEGATIVE (NEGATIVE); Nitrite Urine UA NEGATIVE (Negative); Occult Blood Urine UA NEGATIVE (Negative); Protein Urine UA NEGATIVE (Negative); Urobilinogen Urine UA 0.2 E.U./dL (0.2); pH Urine UA 6.5 (4.5-8.0)
[2024-04-05 00:11] LABS: Bacteria Urine None Seen; Culture Indicated Urine Cult Not Indicated; RBC Urine None Seen (0-5/HPF); Squamous Epithelial Cell Urine 0-1 /HPF (0-5/HPF); Urine Volume 10mL (spun); WBC Urine None Seen (0-5/HPF)
== END 2024-04-05 00:20 | disposition home or self-care (01) ==
PROVIDERS: Emergency Provider Emergency Medicine
DX: I10 Essential (primary) hypertension (principal)
CPT/HCPCS: 36415; 71045; 80053; 81001; 84443; 85025; 93005; 96374; 99284; J0360

== ENCOUNTER 2024-04-27 15:07 | Emergency (ER) | payer MEDICARE, OTHER, SELFPAY ==
[2024-04-27 15:12] VITALS: BP 194/93; PULSE 86; RESP 16; TEMP 37.9; O2SAT 96; BMI 30.9
--- NOTE | 2024-04-27 15:20 | ED_ITS ---
HPI - URI/Sore Throat <Lisandra Conroy PA-C - Last Filed: 04/27/24 16:40> General Chief Complaint: Upper Respiratory Symptoms Stated Complaint: upper resp symptoms Time Seen by Provider: 04/27/24 15:20 History of Present Illness HPI Narrative: Ms. Valenzuela is a very pleasant 73-year-old female with a past medical history of hypertension, hyperlipidemia, acquired hypothyroidism, prediabetes, COPD who presents to the emergency department for fever, productive cough, congestion since last night. Patient states last night she developed a very wet/productive cough which causes occasional coughing fits with shortness of breath and chest wall discomfort during cough. No chest pain or shortness of breath at rest. Sputum is nonbloody. She took Mucinex last night but reports it did not resolve her symptoms. She has mild sore throat and frontal headache as well. Reports similar symptoms in the past which required antibiotics. She is nonsmoker. Denies abdominal pain, nausea, vomiting, dysuria, back pain. She has taken no medications today except for her thyroid medication. Uses Qvar 2x daily. She works as a MANAGER [employer] and reports being around a family member of the patient that was sick. Related Data Home Medications Medication Instructions Recorded Confirmed furosemide 20 mg tablet 20 mg PO QAM PRN bloating 11/01/18 11/15/18 albuterol sulfate 90 mcg/actuation 1 - 2 puff inhalation PRN PRN 06/21/19 06/21/19 aerosol inhaler (Ventolin HFA) Shortness Of Breath beclomethasone dipropionate 80 1 - 2 inh inhalation BID 06/21/19 06/21/19 mcg/actuation HFA breath activated aerosol (Qvar RediHaler) levothyroxine 125 mcg tablet 125 mcg PO DAILY 06/21/19 06/21/19 metformin 500 mg tablet 500 mg PO QPM 06/21/19 06/21/19 Previous Rx's Medication Instructions Recorded atorvastatin 40 mg tablet 40 mg PO DAILY #90 tabs 01/24/18 ibuprofen 800 mg tablet 800 mg PO TID PRN pain #150 tabs 05/01/18 amlodipine 5 mg tablet 5 mg PO DAILY #30 tabs 04/05/24 amlodipine 5 mg tablet 5 mg PO DAILY #30 tabs 04/05/24 albuterol sulfate 90 mcg/actuation 2 puff inhalation Q6H PRN 04/27/24 aerosol inhaler shortness of breath or wheezing #6.7 grams prednisone 20 mg tablet 40 mg (2 x 20 mg) PO DAILY 4 days 04/27/24 #8 tabs Allergies Allergy/AdvReac Type Severity Reaction Status Date / Time aspirin [ASPIRIN] AdvReac Mild Stomach Verified 06/21/19 10:45 irritation codeine [CODEINE] AdvReac Mild GI upset Verified 06/21/19 10:45 Review of Systems <Lisandra Conroy PA-C - Last Filed: 04/27/24 16:40> Review of Systems ROS Unobtainable: All systems reviewed & are unremarkable except as noted in HPI and below Patient History <Lisandra Conroy PA-C - Last Filed: 04/27/24 16:40> Medical History (Updated 04/27/24 @ 16:01 by Lisandra Conroy PA-C) Hyperthyroidism Mixed hyperlipidemia Acquired hypothyroidism Surgical History Status post hysterectomy (~1988) Status post cholecystectomy Family History Mother Brain tumor Social History household members: spouse Smoking Status: Never smoker Smoking Status: Never smoker alcohol intake frequency: 0-2 drinks per day Exam <Lisandra Conroy PA-C - Last Filed: 04/27/24 16:40> Narrative Exam Narrative: GENERAL: 73 year old patient appears stated age. Well-developed patient, in no acute distress. HEAD: Atraumatic. Normocephalic. ENT: Nose without bleeding, purulent drainage. Throat without erythema, tonsillar hypertrophy or exudate. Airway patent. NECK: Trachea midline. Cervical ROM intact. CARDIOVASCULAR: Regular rate and rhythm. RESPIRATORY: ?Nonlabored respirations. ?Speaking in clear, full sentences. Slight inspiratory wheezes throughout. No crackles. GASTROINTESTINAL: Abdomen soft, non-tender, nondistended. EXTREMITIES: No edema or joint tenderness. NEURO: AOx3. ?Clear speech. ?Moves all 4 extremities appropriately. SKIN: No rash or erythema of visible areas Initial Vital Signs Initial Vital Signs: Vital Signs Temperature 100.2 F H 04/27/24 15:12 Pulse Rate 86 04/27/24 15:12 Respiratory Rate 16 04/27/24 15:12 Blood Pressure 194/93 H 04/27/24 15:12 Pulse Oximetry 96 04/27/24 15:12 Oxygen Delivery Method Room Air 04/27/24 15:12 <Karissa Aguilera MD - Last Filed: 04/28/24 09:10> Initial Vital Signs Initial Vital Signs: Vital Signs Temperature 100.2 F H 04/27/24 15:12 Pulse Rate 86 04/27/24 15:12 Respiratory Rate 16 04/27/24 15:12 Blood Pressure 194/93 H 04/27/24 15:12 Pulse Oximetry 96 04/27/24 15:12 Oxygen Delivery Method Room Air 04/27/24 15:12 Course <Lisandra Conroy PA-C - Last Filed: 04/27/24 16:40> Orders Ordered: Discontinued Medications Acetaminophen (Acetaminophen 325 Mg Tablet) 975 mg PO NOW ONE Stop: 04/27/24 15:29 Last Admin: 04/27/24 15:44 Dose: 975 mg Documented By: SPF Albuterol/Ipratropium (Albuterol/Ipratropium 3 Ml Ampul) 3 ml INH NOW ONE Stop: 04/27/24 15:29 Last Admin: 04/27/24 15:52 Dose: 3 ml Documented By: SPF Prednisone (Prednisone 20 Mg Tablet) 40 mg PO NOW ONE Stop: 04/27/24 15:29 Last Admin: 04/27/24 15:45 Dose: 40 mg Documented By: SPF Vital Signs Vital signs: Vital Signs - 8 hr 04/27/24 15:12 04/27/24 16:06 04/27/24 16:19 Temperature 100.2 F H Pulse Rate 86 74 73 Respiratory Rate 16 18 Blood Pressure 194/93 H Pulse Oximetry 96 94 95 Oxygen Delivery Method Room Air Room Air 04/27/24 16:27 04/27/24 16:29 Temperature 99.6 F Pulse Rate 71 Respiratory Rate Blood Pressure 141/73 H Pulse Oximetry 93 Oxygen Delivery Method Room Air <Karissa Aguilera MD - Last Filed: 04/28/24 09:10> Orders Ordered: Discontinued Medications Acetaminophen (Acetaminophen 325 Mg Tablet) 975 mg PO NOW ONE Stop: 04/27/24 15:29 Last Admin: 04/27/24 15:44 Dose: 975 mg Documented By: SPF Albuterol/Ipratropium (Albuterol/Ipratropium 3 Ml Ampul) 3 ml INH NOW ONE Stop: 04/27/24 15:29 Last Admin: 04/27/24 15:52 Dose: 3 ml Documented By: MARY KATE Prednisone (Prednisone 20 Mg Tablet) 40 mg PO NOW ONE Stop: 04/27/24 15:29 Last Admin: 04/27/24 15:45 Dose: 40 mg Documented By: SPF Vital Signs Vital signs: Vital Signs - 8 hr 04/27/24 15:12 04/27/24 16:06 04/27/24 16:19 Temperature 100.2 F H Pulse Rate 86 74 73 Respiratory Rate 16 18 Blood Pressure 194/93 H Pulse Oximetry 96 94 95 Oxygen Delivery Method Room Air Room Air 04/27/24 16:27 04/27/24 16:29 Temperature 99.6 F Pulse Rate 71 Respiratory Rate Blood Pressure 141/73 H Pulse Oximetry 93 Oxygen Delivery Method Room Air MDM - URI/Sore Throat <Lisandra Conroy PA-C - Last Filed: 04/27/24 16:40> Medical Records Attestation: I reviewed the patient's medical records. Lab Data Labs: Lab Results 04/27/24 Range/Units 15:15 SARS-CoV-2 (PCR) Negative (Negative) Influenza A (RT-PCR) Flu a negative (NEGATIVE) Influenza B (RT-PCR) Flu b negative (NEGATIVE) RSV (PCR) Positive A (Negative) Imaging Data Chest x-ray: Radiologist's Impression: PROCEDURE: XR CHEST 2V INDICATIONS: cough fever wheezing TECHNIQUE: 2 views of the chest were acquired. COMPARISON: [facility], , XR CHEST 1V, 04/04/2024, 22:33. [facility], , XR CHEST 1V, 05/30/2021, 2:17. FINDINGS: Surgical changes and devices: None. Lungs and pleura: Lungs are clear. No pleural effusions or pneumothorax. Mediastinum: Mediastinal contours are normal. Heart size is normal. Bones and chest wall: No suspicious bony abnormalities. Soft tissues appear unremarkable. IMPRESSION: No acute cardiopulmonary abnormality is seen. [facility] Narrative Medical decision making narrative: 73-year-old female with a past medical history of hypertension, hyperlipidemia, acquired hypothyroidism, prediabetes, COPD who presents to the emergency department for fever, productive cough, congestion since last night. Differential diagnosis includes but is not limited to viral syndrome, pneumonia, COPD exacerbation, influenza, COVID, etc. On exam the patient is well-appearing, in no acute distress, no increased work of breathing. She does have some mild inspiratory wheezes throughout the lung mejia and a history of COPD. Blood pressure is elevated at 194/93 in triage and temperature of 100.2? F. HR normal 86, RR normal 16, O2 sat 96% on room air. Pt reports being recently started on amlodipine for BP, which she takes at night, and has a follow up with her primary for BP on 05/07 - reports normal measurments at home. Symptoms today consistent with an upper respiratory type infection vs copd exacerbation. Viral swab was obtained in triage. We will proceed with two-view chest x-ray, acetaminophen for fever, DuoNeb and prednisone for wheezing. Viral swab positive for RSV. Patient reports feeling much better after breathing treatment. Chest x-ray negative for any acute cardiopulmonary abnormality. Wheezing improved. Patient reports feeling much better and is eager for discharge home. We discussed strict ER return precautions and follow up with PCP. Will send a short course of prednisone and albuterol inhaler to the pharmacy to help with wheezing. Recommended ibuprofen/Tylenol for fever in addition to rest, hydration, warm tea with honey. Patient verbalized understanding of all information and is agreeable to the plan. Blood pressure decreased to 141/73, temp 99.6?, HR 71. She is stable for discharge home. <Karissa Aguilera MD - Last Filed: 04/28/24 09:10> Lab Data Labs: Lab Results 04/27/24 Range/Units 15:15 SARS-CoV-2 (PCR) Negative (Negative) Influenza A (RT-PCR) Flu a negative (NEGATIVE) Influenza B (RT-PCR) Flu b negative (NEGATIVE) RSV (PCR) Positive A (Negative) Discharge Plan Departure Patient Disposition: Home Clinical Impression: Respiratory syncytial virus (RSV) Qualifiers: RSV infection type: unspecified Qualified Code(s): B33.8 - Other specified viral diseases Instructions: DI for Respiratory Syncytial Virus -- Adults Activity Restrictions/Additional Instructions: Today you tested positive for RSV, respiratory syncytial virus. This is an upper respiratory virus. It is very important to rest, hydrate, use ibuprofen and or Tylenol for fever, in use prescribed inhaler and steroids to help with wheezing. Your chest x-ray is negative for pneumonia. You may return to work once you are 24 hours fever free without the use of medication. Please wash hands frequently and use a mask to prevent the spread of RSV. Please take Ibuprofen (Motrin/Advil) or Acetaminophen (Tylenol) for pain. These are available over the counter. You may take Ibuprofen 600 mg every 8 hours with food for pain. You may also take Acetaminophen 650 mg every 4-6 hours for pain. Do not exceed 3000 mg of Tylenol a day as this can cause liver damage. Do not drink alcohol with either of these medications. Please follow up with your primary care doctor within the next 2-3 days for ER follow-up. (If you do not have a PCP you can call [phone]. ?to schedule an appointment with an [facility] Primary Care Provider) IF YOU DEVELOP ANY NEW OR WORSENING SYMPTOMS, RETURN TO THE ER! Please read the attached instructions, they highlight more specific treatments and interventions for you at home. Thank you for letting me participate in your care, Lisandra Conroy PA-C Prescriptions: New albuterol sulfate 90 mcg/actuation HFA aerosol inhaler 2 puff inhalation Q6H PRN (Reason: shortness of breath or wheezing) Qty: 6.7 0RF prednisone 20 mg tablet 40 mg PO DAILY 4 Days Qty: 8 0RF Rx Instructions: Start on 04/28/24. No Action ibuprofen 800 mg tablet 800 mg PO TID PRN (Reason: pain) Qty: 150 3RF atorvastatin 40 mg tablet 40 mg PO DAILY Qty: 90 3RF metformin 500 mg tablet 500 mg PO QPM Patient Comments: TAKE 1 (ONE) TABLET DAILY WITH DINNER Rx Instructions: with dinner levothyroxine 125 mcg tablet 125 mcg PO DAILY Patient Comments: TAKE 1 TABLET DAILY, TAKE ON EMPTY STOMACH albuterol sulfate [Ventolin HFA] 90 mcg/actuation HFA aerosol inhaler 1 - 2 puff INHALATION PRN PRN (Reason: Shortness Of Breath) Patient Comments: INHALE 1-2 PUFF EVERY 6 HOURS NEEDED FOR ASTHMA Qvar RediHaler 80 mcg/actuation HFA aerosol breath activated 1 - 2 inh INHALATION BID Patient Comments: INHALE 1-2 PUFFS BY MOUTH TWO TIMES DAILY amlodipine 5 mg tablet 5 mg PO DAILY Qty: 30 0RF amlodipine 5 mg tablet 5 mg PO DAILY Qty: 30 0RF furosemide 20 MG tablet 20 mg PO QAM PRN (Reason: bloating) Referrals: Miscellaneous,Doctor, [Primary Care Provider] - Stand Alone Forms: Patient Portal/API/Survey, Work Release Note ED Sign-out <Karissa Aguilera MD - Last Filed: 04/28/24 09:10> Cosign ED Attending Cosignature Attestation: I was immediately available in the department for consultation throughout this patient's visit. Karissa Aguilera MD
--- NOTE | 2024-04-27 15:28 | DI.RAD.S_ITS ---
PROCEDURE: XR CHEST 2V INDICATIONS: cough fever wheezing TECHNIQUE: 2 views of the chest were acquired. COMPARISON: [facility], CR, XR CHEST 1V, 04/04/2024, 22:33. [facility], CR, XR CHEST 1V, 05/30/2021, 2:17. FINDINGS: Surgical changes and devices: None. Lungs and pleura: Lungs are clear. No pleural effusions or pneumothorax. Mediastinum: Mediastinal contours are normal. Heart size is normal. Bones and chest wall: No suspicious bony abnormalities. Soft tissues appear unremarkable. IMPRESSION: No acute cardiopulmonary abnormality is seen. Dictated by: Radames Booker M.D. on 04/27/2024 at 16:10 Approved by: Radames Booker M.D. on 04/27/2024 at 16:11
[2024-04-27] MEDS: ACETAMINOPHEN 325 MG TABLET 975 MG PO (15:44)
[2024-04-27] MEDS: predniSONE 20 MG TABLET 40 MG PO (15:45)
[2024-04-27] MEDS: ALBUTEROL/IPRATROPIUM 3 ML AMPUL INH (15:52)
[2024-04-27 15:55] LABS: Influenza A - CEPHEID Flu A NEGATIVE (NEGATIVE); Influenza B - CEPHEID Flu B NEGATIVE (NEGATIVE); Respiratory Syncytial Virus POSITIVE (Negative)
[2024-04-27 15:56] LABS: COVID-19 CEPHEID 4-PLEX PCR Negative (Negative)
[2024-04-27 16:06] VITALS: PULSE 74; RESP 18; O2SAT 94
[2024-04-27 16:19] VITALS: PULSE 73; O2SAT 95
[2024-04-27 16:27] VITALS: BP 141/73; PULSE 71; O2SAT 93
[2024-04-27 16:29] VITALS: TEMP 37.6
== END 2024-04-27 16:27 | disposition home or self-care (01) ==
PROVIDERS: Emergency Provider Physician Assistant
DX: B33.8 Other specified viral diseases (principal); R05.9 Cough, unspecified; R07.9 Chest pain, unspecified
CPT/HCPCS: 0241U; 71045; 99283; 99284

== ENCOUNTER 2024-04-29 17:59 | Emergency (ER) | payer MEDICARE, OTHER, SELFPAY ==
[2024-04-29] VITALS (14 sets, daily range): BP systolic 142–200; BP diastolic 74–95; PULSE 71–96; RESP 18–20; TEMP 36.5–37.2; O2SAT 92–99; BMI 30.8
--- NOTE | 2024-04-29 18:53 | DI.RAD.S_ITS ---
PROCEDURE: XR CHEST 2V INDICATIONS: RSV+, ongoing cough, SOB TECHNIQUE: 2 views of the chest were acquired. COMPARISON: [facility], CR, XR CHEST 2V, 04/27/2024, 15:33. [facility], CR, XR CHEST 1V, 04/04/2024, 22:33. FINDINGS: Surgical changes and devices: Calcified breast implants. Lungs and pleura: Lungs are clear. No pleural effusions or pneumothorax. Mediastinum: Mediastinal contours are normal. Heart size is normal. Bones and chest wall: No suspicious bony abnormalities. Soft tissues appear unremarkable. IMPRESSION: No acute cardiopulmonary abnormality is seen. Dictated by: Lebron Merritt M.D. on 04/29/2024 at 19:53 Approved by: Lebron Merritt M.D. on 04/29/2024 at 19:53
--- NOTE | 2024-04-29 19:27 | PC.NURSE ---
Pt reports pain in my glands of her throat. States at time it is hard to swallow. Pt is able to swallow her secretions and maintains her own airway.
--- NOTE | 2024-04-29 20:02 | ED_ITS ---
HPI - URI/Sore Throat General Chief Complaint: Upper Respiratory Symptoms Stated Complaint: return from 04/27 coughing, wheezing, sob Time Seen by Provider: 04/29/24 20:02 Source: patient Mode of arrival: Ambulatory History of Present Illness HPI Narrative: 73-year-old female history of hyperlipidemia hypothyroidism recent diagnosis of RSV comes into the ED from home for evaluation of persistent cough, wheezing, shortness of breath, states that she was here on 04/27 diagnosed with RSV however having persistent cough wheezing shortness breath therefore decided come into the ED for further evaluation treatment., evaluation patient not requiring any supplemental oxygen but is having what appears to be spastic coughing. He is protecting airway speaking in full sentences she has not complaining of any new symptoms such as headache visual disturbances chest pain fever chills nausea vomiting abdominal pain or any other GI/ symptoms. Related Data Home Medications Medication Instructions Recorded Confirmed furosemide 20 mg tablet 20 mg PO QAM PRN bloating 11/01/18 11/15/18 albuterol sulfate 90 mcg/actuation 1 - 2 puff inhalation PRN PRN 06/21/19 06/21/19 aerosol inhaler (Ventolin HFA) Shortness Of Breath beclomethasone dipropionate 80 1 - 2 inh inhalation BID 06/21/19 06/21/19 mcg/actuation HFA breath activated aerosol (Qvar RediHaler) levothyroxine 125 mcg tablet 125 mcg PO DAILY 06/21/19 06/21/19 metformin 500 mg tablet 500 mg PO QPM 06/21/19 06/21/19 Previous Rx's Medication Instructions Recorded atorvastatin 40 mg tablet 40 mg PO DAILY #90 tabs 01/24/18 ibuprofen 800 mg tablet 800 mg PO TID PRN pain #150 tabs 05/01/18 amlodipine 5 mg tablet 5 mg PO DAILY #30 tabs 04/05/24 amlodipine 5 mg tablet 5 mg PO DAILY #30 tabs 04/05/24 albuterol sulfate 90 mcg/actuation 2 puff inhalation Q6H PRN 04/27/24 aerosol inhaler shortness of breath or wheezing #6.7 grams prednisone 20 mg tablet 40 mg (2 x 20 mg) PO DAILY 4 days 04/27/24 #8 tabs benzonatate 100 mg capsule 100 mg PO BID PRN cough 7 days #14 04/29/24 caps Allergies Allergy/AdvReac Type Severity Reaction Status Date / Time aspirin [ASPIRIN] AdvReac Mild Stomach Verified 06/21/19 10:45 irritation codeine [CODEINE] AdvReac Mild GI upset Verified 06/21/19 10:45 Review of Systems Review of Systems Narrative: General: Denies fever, chills, weight loss HEENT: Denies headache, eye drainage, eye irritation, head trauma, sore throat, voice change Cardiovascular: Denies any chest pain, palpitations, shortness of breath, tachycardia Respiratory: D positive cough, wheeze, denies shortness of breath or stridor GI/: Denies any abdominal pain, nausea, vomiting, diarrhea, bright red blood per rectum, melanotic stools, urinary frequency, urinary retention, dysuria, hematuria MSK: Denies any joint pain, muscle pains, swelling Skin: Denies any rashes, lesions, discoloration Neuro: Denies any headache, lightheadedness, dizziness, fainting, weakness Psych: Denies SI/HI Patient History Medical History (Updated 04/29/24 @ 20:25 by Torito Oakes DO) Hyperthyroidism Mixed hyperlipidemia Acquired hypothyroidism Surgical History Status post hysterectomy (~1988) Status post cholecystectomy Family History Mother Brain tumor Social History household members: spouse Smoking Status: Never smoker Smoking Status: Never smoker alcohol intake frequency: 0-2 drinks per day Exam Narrative Exam Narrative: General: Cooperative, comfortable, well-developed, not in acute distress HEENT: Normocephalic, atraumatic, PERRLA, normal sclera, eyelids normal, Neck: Active full range of motion, atraumatic Chest: Normal to inspection, negative crepitus, no overlying erythema ecchymosis Respiratory: Coughing on exam, not in any acute respiratory distress speaking in full sentences protecting airway, mild expiratory wheezes in the low lung mejia with rales Cardiology: Regular rate rhythm negative gallop, murmur, rubs GI/: Normal to inspection, soft, nonrigid, no tenderness to palpation, exam deferred MSK: Full range of active range of motion of all 4 extremities, atraumatic Skin: No rashes lesions noted Neuro: Alert awake oriented x3, moves all 4 extremities spontaneously, cranial nerves intact, able to answer all questions appropriately follows commands appropriately Psych: Cooperative, negative suicidal or homicidal ideations Initial Vital Signs Initial Vital Signs: Vital Signs Temperature 98.9 F 04/29/24 18:13 Pulse Rate 75 04/29/24 18:13 Respiratory Rate 20 04/29/24 18:13 Blood Pressure 190/83 H 04/29/24 18:13 Pulse Oximetry 94 04/29/24 18:13 Oxygen Delivery Method Room Air 04/29/24 18:13 Course Orders Ordered: ED Orders 04/29/24 18:53 XR chest 2V Stat 04/29/24 20:00 RT Consult Eval and Treat NOW Discontinued Medications Albuterol/Ipratropium (Albuterol/Ipratropium 3 Ml Ampul) 6 ml INH NOW ONE Stop: 04/29/24 20:25 Last Admin: 04/29/24 20:30 Dose: 6 ml Documented By: VERA Magnesium Sulfate (Magnesium Sulfate) 2 gm in 50 mls @ 150 mls/hr IV NOW ONE Stop: 04/29/24 20:42 Last Infusion: 04/29/24 21:12 Dose: Infused Documented By: RUFINO Co-signed By: DEEPIKA Admin: 04/29/24 20:48 Dose: 150 mls/hr Documented By: RUFINO Co-signed By: ROSAMARIA Methylprednisolone (Methylprednisolone 125 Mg/2 Ml Vial) 125 mg IV NOW ONE Stop: 04/29/24 20:24 Last Admin: 04/29/24 20:48 Dose: 125 mg Documented By: RUFINO Vital Signs Vital signs: Vital Signs - 8 hr 04/29/24 18:13 04/29/24 19:18 04/29/24 19:21 Temperature 98.9 F Pulse Rate 75 96 H 89 Respiratory Rate 20 Blood Pressure 190/83 H Pulse Oximetry 94 99 92 Oxygen Delivery Method Room Air Fraction of Inspired Oxygen 04/29/24 19:21 04/29/24 19:22 04/29/24 19:22 Temperature Pulse Rate 79 Respiratory Rate Blood Pressure 200/95 H 190/89 H Pulse Oximetry 93 Oxygen Delivery Method Fraction of Inspired Oxygen 04/29/24 19:30 04/29/24 19:30 04/29/24 20:00 Temperature Pulse Rate 78 79 Respiratory Rate 18 Blood Pressure 176/94 H Pulse Oximetry 94 92 Oxygen Delivery Method Fraction of Inspired Oxygen 04/29/24 20:00 04/29/24 20:30 04/29/24 20:30 Temperature Pulse Rate 78 Respiratory Rate Blood Pressure 193/92 H 199/93 H Pulse Oximetry 94 Oxygen Delivery Method Fraction of Inspired Oxygen 04/29/24 20:33 04/29/24 20:38 04/29/24 20:38 Temperature Pulse Rate 71 74 Respiratory Rate 20 Blood Pressure 186/88 H Pulse Oximetry 99 99 Oxygen Delivery Method Room Air Room Air Fraction of Inspired Oxygen 21 MDM - URI/Sore Throat Differential Diagnosis Differential diagnosis: Likely upper respiratory infection and other (RSV, bronchitis) Imaging Data Chest x-ray: Radiologist's Impression: [address] [address] XRay Report Signed Patient: Laly Valenzuela I MR#: [id number] : 1950 Acct:[id number] Age/Sex: 73 / F Date of Service: 04/29/24 Loc: ED Accession Number: [id number] Procedure: XR chest 2V Ordering Provider: Torito Oakes D.O. PROCEDURE: XR CHEST 2V INDICATIONS: RSV+, ongoing cough, SOB TECHNIQUE: 2 views of the chest were acquired. COMPARISON: [facility], CR, XR CHEST 2V, 04/27/2024, 15:33. [facility], CR, XR CHEST 1V, 04/04/2024, 22:33. FINDINGS: Surgical changes and devices: Calcified breast implants. Lungs and pleura: Lungs are clear. No pleural effusions or pneumothorax. Mediastinum: Mediastinal contours are normal. Heart size is normal. Bones and chest wall: No suspicious bony abnormalities. Soft tissues appear unremarkable. IMPRESSION: No acute cardiopulmonary abnormality is seen. [facility] Narrative Medical decision making narrative: 73-year-old female history of hyperlipidemia hypothyroidism recently diagnosed with RSV 2 days ago comes into the ED for persistent coughing, she states that she has been taking the steroids and albuterol inhaler at home but is still having a significant amount of coughing therefore she decided come into the ED for further evaluation treatment. She denies any actual true shortness of breath denies any chest pain no new symptoms at this time. Repeat chest x-ray showing no acute cardiopulmonary abnormalities. After administration of DuoNeb patient was significantly improved symptoms, not requiring any supplemental oxygen, instructed to follow up with primary care in outpatient setting we will be sent home on Yolie Silver to help with her cough, she understands agrees with the plan agrees to being discharged home with outpatient follow up Discharge Plan Departure Patient Disposition: Home Clinical Impression: Respiratory syncytial virus (RSV) Activity Restrictions/Additional Instructions: Please read the discharge instructions sheet carefully and bring all papers to all doctor follow-up visits, as it may contain information that your doctor may want to see. Disease processes change and evolve, if your symptoms worsen or if you develop any new symptoms that are concerning to you please return for evaluation. Your evaluation today does not show any evidence of any life- threatening/serious illnesses requiring admission to the hospital or surgery. Aleyda rowell follow-up with your doctor for re-evaluation in approximately 1 day. Seek immediate medical attention for any worrisome symptoms. *If you do not have a primary care provider please contact the [facility] Resource line at [phone]. They will ask some questions about your medical history and help get you set up with a doctor in the community. Prescriptions: New benzonatate 100 mg capsule 100 mg PO BID PRN (Reason: cough) 7 Days Qty: 14 0RF No Action ibuprofen 800 mg tablet 800 mg PO TID PRN (Reason: pain) Qty: 150 3RF atorvastatin 40 mg tablet 40 mg PO DAILY Qty: 90 3RF metformin 500 mg tablet 500 mg PO QPM Patient Comments: TAKE 1 (ONE) TABLET DAILY WITH DINNER Rx Instructions: with dinner levothyroxine 125 mcg tablet 125 mcg PO DAILY Patient Comments: TAKE 1 TABLET DAILY, TAKE ON EMPTY STOMACH albuterol sulfate [Ventolin HFA] 90 mcg/actuation HFA aerosol inhaler 1 - 2 puff INHALATION PRN PRN (Reason: Shortness Of Breath) Patient Comments: INHALE 1-2 PUFF EVERY 6 HOURS NEEDED FOR ASTHMA Qvar RediHaler 80 mcg/actuation HFA aerosol breath activated 1 - 2 inh INHALATION BID Patient Comments: INHALE 1-2 PUFFS BY MOUTH TWO TIMES DAILY amlodipine 5 mg tablet 5 mg PO DAILY Qty: 30 0RF amlodipine 5 mg tablet 5 mg PO DAILY Qty: 30 0RF albuterol sulfate 90 mcg/actuation HFA aerosol inhaler 2 puff inhalation Q6H PRN (Reason: shortness of breath or wheezing) Qty: 6.7 0RF prednisone 20 mg tablet 40 mg PO DAILY 4 Days Qty: 8 0RF Rx Instructions: Start on 04/28/24. furosemide 20 MG tablet 20 mg PO QAM PRN (Reason: bloating) Referrals: Miscellaneous,Doctor, MD [Primary Care Provider] - Stand Alone Forms: Patient Portal/API/Survey
[2024-04-29] MEDS: ALBUTEROL/IPRATROPIUM 3 ML AMPUL 6 ML INH (20:30)
[2024-04-29] MEDS: MAGNESIUM SULFATE 2 GM/50 ML PIGGYBACK IV (20:48)
[2024-04-29] MEDS: methylPREDNISolone 125 MG/2 ML VIAL IV (20:48)
== END 2024-04-29 22:07 | disposition home or self-care (01) ==
PROVIDERS: Emergency Provider Student in an Organized Health Care Education/Training Program
DX: B33.8 Other specified viral diseases (principal); R06.02 Shortness of breath
CPT/HCPCS: 36415; 71046; 94640; 96365; 96375; 99284; J2919; J3475

== ENCOUNTER 2024-08-18 03:28 | Emergency (ER) | payer MEDICARE, OTHER, SELFPAY ==
[2024-08-18 03:37] VITALS: BP 192/112; PULSE 82; O2SAT 95
[2024-08-18 03:48] VITALS: BP 220/98; PULSE 83; RESP 18; TEMP 36.5; O2SAT 97; BMI 29.2
--- NOTE | 2024-08-18 03:51 | DI.RAD.S_ITS ---
PROCEDURE: XR CHEST 2V INDICATIONS: dyspnea, choking episode, eval aspiration TECHNIQUE: 2 views of the chest were acquired. COMPARISON: [facility], CR, XR CHEST 2V, 04/29/2024, 19:08. FINDINGS: Surgical changes and devices: Rim calcified mammoplasty implants can be seen. Lungs and pleura: Minimal patchy generalized interstitial prominence can be seen. No pleural effusions or pneumothorax. Mediastinum: The cardiac contours are within normal limits. The aorta demonstrates calcification and tortuosity. Bones and chest wall: No suspicious bony abnormalities. Age-appropriate bony degenerative changes are seen. Accentuated thoracic kyphosis is seen. Left shoulder calcific tendinopathy can be seen. IMPRESSION: Generalized patchy interstitial prominence can be seen. Followup chest radiographs are recommended to complete resolution. Postoperative and degenerative changes are seen. Note: No significant discrepancy from the preliminary report. Dictated by: Gary Robles M.D. on 08/18/2024 at 9:02 Approved by: Gary Robles M.D. on 08/18/2024 at 9:03
[2024-08-18] MEDS: MAG HYDROX/ALUMINUM/SIMETH SUS 20 ML, LIDOCAINE VISCOUS 2% 15 ML PO (03:57)
[2024-08-18 04:00] VITALS: BP 173/80; PULSE 74; O2SAT 96
--- NOTE | 2024-08-18 04:19 | ED.GENADULT ---
HPI - General Adult General Chief complaint: Shortness of Breath/Dyspnea Stated complaint: SOB, reflux Time Seen by Provider: 08/18/24 03:42 Source: patient Mode of arrival: Ambulatory History of Present Illness HPI narrative: 73-year-old female has history of reflux for which he used to take Nexium, uses inhalers at home, had episode of reflux and choking sensation, neck discomfort afterwards. No shortness of breath. No subsequent chest pain. No recent cough fevers or chills. Related Data Home Medications Medication Instructions Recorded Confirmed furosemide 20 mg tablet 20 mg PO QAM PRN bloating 11/01/18 11/15/18 albuterol sulfate 90 mcg/actuation 1 - 2 puff inhalation PRN PRN 06/21/19 06/21/19 aerosol inhaler (Ventolin HFA) Shortness Of Breath beclomethasone dipropionate 80 1 - 2 inh inhalation BID 06/21/19 06/21/19 mcg/actuation HFA breath activated aerosol (Qvar RediHaler) levothyroxine 125 mcg tablet 125 mcg PO DAILY 06/21/19 06/21/19 metformin 500 mg tablet 500 mg PO QPM 06/21/19 06/21/19 Previous Rx's Medication Instructions Recorded atorvastatin 40 mg tablet 40 mg PO DAILY #90 tabs 01/24/18 ibuprofen 800 mg tablet 800 mg PO TID PRN pain #150 tabs 05/01/18 amlodipine 5 mg tablet 5 mg PO DAILY #30 tabs 04/05/24 amlodipine 5 mg tablet 5 mg PO DAILY #30 tabs 04/05/24 albuterol sulfate 90 mcg/actuation 2 puff inhalation Q6H PRN 04/27/24 aerosol inhaler shortness of breath or wheezing #6.7 grams amoxicillin 875 mg tablet 875 mg PO BID dental infection 10 08/18/24 days #20 tabs doxycycline hyclate 100 mg tablet 100 mg PO BID #20 tabs 08/18/24 Allergies Allergy/AdvReac Type Severity Reaction Status Date / Time aspirin [ASPIRIN] AdvReac Mild Stomach Verified 06/21/19 10:45 irritation codeine [CODEINE] AdvReac Mild GI upset Verified 06/21/19 10:45 Patient History Medical History (Updated 08/18/24 @ 04:40 by Huang Mendes MD) Hyperthyroidism Mixed hyperlipidemia Acquired hypothyroidism Surgical History Status post hysterectomy (~1988) Status post cholecystectomy Family History Mother Brain tumor Social History household members: spouse Smoking Status: Never smoker Smoking Status: Never smoker alcohol intake frequency: 0-2 drinks per day Exam Narrative Exam Narrative: GENERAL: Well-developed patient, in mild distress. HEAD: Atraumatic. Normocephalic. EYES: Pupils equal round and reactive. Extraocular motions intact. No scleral icterus. No injection or drainage. ENT: Nose without bleeding, purulent drainage. Throat without erythema, tonsillar hypertrophy or exudate. Airway patent. NECK: Trachea midline. Non tender CARDIOVASCULAR: Regular rate and rhythm, systolic 2/6 murmur best LLSB, patient has known murmur per her report, no gallops, or rubs. RESPIRATORY: Clear to auscultation. Breath sounds equal bilaterally. No wheezes, rales, or rhonchi. GASTROINTESTINAL: Abdomen soft, non-tender, nondistended. EXTREMITIES: No edema or joint tenderness. BACK: Nontender without deformity or crepitance. No flank tenderness. NEURO: AOx3. Motor functions grossly nonfocal SKIN: No rash or erythema of visible areas Initial Vital Signs Initial Vital Signs: Vital Signs Pulse Rate 82 08/18/24 03:37 Blood Pressure 192/112 H 08/18/24 03:37 Pulse Oximetry 95 08/18/24 03:37 Course Orders Ordered: Discontinued Medications Albuterol (Albuterol 2.5 Mg/3 Ml Neb (Adult)) 2.5 mg INH NOW ONE Stop: 08/18/24 03:43 Amlodipine Besylate (Amlodipine 5 Mg Tablet) 5 mg PO NOW ONE Stop: 08/18/24 04:19 Last Admin: 08/18/24 04:58 Dose: Not Given Documented By: DEEPIKA Amoxicillin (Amoxicillin 250 Mg Capsule) 1,000 mg PO NOW ONE Stop: 08/18/24 04:31 Last Admin: 08/18/24 04:57 Dose: 1,000 mg Documented By: DEEPIKA Al Hydrox/Mg Hydrox/Simethicone 20 ml/ Lidocaine HCl 15 ml 0 ml PO NOW ONE Stop: 08/18/24 03:46 Last Admin: 08/18/24 03:57 Dose: 30 ml Documented By: DEEPIKA Doxycycline Hyclate (Doxycycline Hyclate 100 Mg Tablet) 100 mg PO NOW ONE Stop: 08/18/24 04:31 Last Admin: 08/18/24 04:57 Dose: 100 mg Documented By: DEEPIKA Vital Signs Vital signs: Vital Signs - 8 hr 08/18/24 03:48 Temperature 97.7 F Pulse Rate 83 Respiratory Rate 18 Blood Pressure 220/98 H Pulse Oximetry 97 Oxygen Delivery Method Room Air Medical Decision Making MDM Narrative Medical decision making narrative: Choking episode with neck discomfort. GI cocktail given, neck pain symptoms gone. Afebrile, SIRS screen negative, no oxygen requirement, no labored breathing, lungs clear. Chest x-ray ordered to evaluate for aspiration or other sequelae of choking episode. Chest x-ray PA and lateral, showed multifocal bilateral pulmonary infiltrates. See radiology report. Elevated blood pressure, amlodipine was ordered but not yet given, improved blood pressure without specific treatment. Patient can take her regular morning blood pressure control regimen at home. Normal oxygenation, could not hear wheezes or crackles on examination, we will give oral amoxicillin and doxycycline course. She would like to go home. She seemed to be aware of heart murmur found on exam, further workup as needed as outpatient for now. Recheck lungs early next week in follow up. Discharge Plan Departure Patient Disposition: Home Clinical Impression: Pneumonia, Choking episode, GE reflux, Heart murmur, Hypertension Activity Restrictions/Additional Instructions: History of reflux previously taking Nexium, choking episode of your secretions with burning sensation. Lungs clear on examination, heart murmur noted which can be further followed up as an outpatient. Lung seemed to be clear and without wheezes. You were given a GI cocktail which made the discomfort go away, possible gastroesophageal reflux. It is possible to have aspiration pneumonia. Chest x-ray was performed, and showed lung infiltrates both sides, it is possible that this is due to aspiration but it could be incidental and just due to regular pneumonia. You did not seem to have any oxygen need, you were breathing easily, speaking in full sentences, with clear lungs. We will start antibiotics in case of pneumonia. Oral amoxicillin and oral doxycycline antibiotics, 1st dose given in the emergency department, further antibiotics sent by prescription for your pharmacy. Take antibiotics as directed. Consider recheck of your lungs with your regular doctor early this next week. Elevated blood pressure noted, improved blood pressure without specific treatment, continue your regular blood pressure medication regimen at home. Consider continuing your antacid medication against gastroesophageal reflux, consider omeprazole [id number] 20 mg daily. Also because of your heart murmur consider echocardiogram as an outpatient if further evaluation. Return earlier to this/nearest emergency department for any change worsening symptoms or any concerns prior. Prescriptions: New amoxicillin 875 mg tablet 875 mg PO BID 10 Days Qty: 20 0RF doxycycline hyclate 100 mg tablet 100 mg PO BID Qty: 20 0RF No Action ibuprofen 800 mg tablet 800 mg PO TID PRN (Reason: pain) Qty: 150 3RF atorvastatin 40 mg tablet 40 mg PO DAILY Qty: 90 3RF metformin 500 mg tablet 500 mg PO QPM Patient Comments: TAKE 1 (ONE) TABLET DAILY WITH DINNER Rx Instructions: with dinner levothyroxine 125 mcg tablet 125 mcg PO DAILY Patient Comments: TAKE 1 TABLET DAILY, TAKE ON EMPTY STOMACH albuterol sulfate [Ventolin HFA] 90 mcg/actuation HFA aerosol inhaler 1 - 2 puff INHALATION PRN PRN (Reason: Shortness Of Breath) Patient Comments: INHALE 1-2 PUFF EVERY 6 HOURS NEEDED FOR ASTHMA Qvar RediHaler 80 mcg/actuation HFA aerosol breath activated 1 - 2 inh INHALATION BID Patient Comments: INHALE 1-2 PUFFS BY MOUTH TWO TIMES DAILY amlodipine 5 mg tablet 5 mg PO DAILY Qty: 30 0RF amlodipine 5 mg tablet 5 mg PO DAILY Qty: 30 0RF albuterol sulfate 90 mcg/actuation HFA aerosol inhaler 2 puff inhalation Q6H PRN (Reason: shortness of breath or wheezing) Qty: 6.7 0RF furosemide 20 MG tablet 20 mg PO QAM PRN (Reason: bloating) Referrals: Miscellaneous,Doctor, MD [Primary Care Provider] - Stand Alone Forms: Patient Portal/API/Survey
[2024-08-18 04:30] VITALS: PULSE 71; O2SAT 95
[2024-08-18] MEDS: AMOXICILLIN 250 MG CAPSULE 1000 MG PO (04:57)
[2024-08-18] MEDS: DOXYCYCLINE HYCLATE 100 MG TABLET PO (04:57)
[2024-08-18 05:00] VITALS: O2SAT 96
[2024-08-18 05:01] VITALS: BP 160/72; PULSE 65; O2SAT 95
== END 2024-08-18 05:05 | disposition home or self-care (01) ==
PROVIDERS: Emergency Provider Emergency Medicine
DX: J18.9 Pneumonia, unspecified organism (principal); R09.89 Other specified symptoms and signs involving the circulatory and respiratory systems; K21.9 Gastro-esophageal reflux disease without esophagitis; R01.1 Cardiac murmur, unspecified; I10 Essential (primary) hypertension
CPT/HCPCS: 71046; 99283